=== PATIENT | female | born 1980 | race Caucasian/White ===

== ENCOUNTER → 2016-06-11 | Outpatient (CLI) | payer BC | LOC: MW.CHPM 11:12 | PROVIDERS: ATTEND Anesthesiology | DX: Z79.891 Long term (current) use of opiate analgesic (principal) | CPT/HCPCS: 80305 ==

== ENCOUNTER 2016-07-05 19:28 | Emergency (ER) | payer BC ==
[2016-07-05] MEDS ORDERED: Ketorolac 30 MG/ML SDV IVPUSH ONE (19:37)
[2016-07-05] MEDS ORDERED: Morphine 2 MG/ML Syringe IVPUSH ONE (19:37)
[2016-07-05] MEDS ORDERED: Sodium Chloride 0.9% 1,000 ML IV ONE (19:37)
--- NOTE | 2016-07-05 19:45 | EDM.PDOC ---
ED HPI GI/ABDOMINAL - General Chief Complaint: Abdominal Pain Stated Complaint: PT HAS STOMACH PAINS Time Seen by Provider: 07/05/16 19:42 Source of Information: Reports: Patient - History of Present Illness INITIAL COMMENTS - FREE TEXT/NARRATIVE: History of present illness: [35-year-old female comes in complaining of acute abdominal pain in her lower pelvis. Patient indicates the pain radiates up from her pelvis prepping around her back into her flank.] Review of systems: As per history of present illness and below otherwise all systems reviewed and negative. Past medical history: As per history of present illness and as reviewed below otherwise noncontributory. Surgical history: As per history of present illness and as reviewed below otherwise noncontributory. Social history: No reported history of drug or alcohol abuse. Family history: As per history of present illness and as reviewed below otherwise noncontributory. Physical exam: HEENT: Atraumatic, normocephalic, pupils reactive, negative for conjunctival pallor or scleral icterus, mucous membranes moist, throat clear, neck supple, nontender, trachea midline. Lungs: Clear to auscultation, breath sounds equal bilaterally, chest nontender. Heart: S1S2, regular, negative for clicks, rubs, or JVD. Abdomen: Soft, nondistended, diffuse nonspecific tenderness Negative for masses or hepatosplenomegaly. Negative for costovertebral tenderness. Pelvis: Stable nontender. Genitourinary: Deferred. Rectal: Deferred. Extremities: Atraumatic, negative for cords or calf pain. Neurovascular unremarkable. Neuro: Awake, alert, oriented. Cranial nerves II through XII unremarkable. Cerebellum unremarkable. Motor and sensory unremarkable throughout. Exam nonfocal. Abdominal assessment as noted above patient with significant amount of pain relief after medicated. Diagnostics: [CBC, CMP, CT of pelvis abdomen with out contrast] Therapeutics: [IV fluid, Toradol Zofran, fentanyl] Impression: [Normal nonobstructing kidney stone, UTI] Plan: [Antibiotics, hydration, follow] Definitive disposition and diagnosis as appropriate pending reevaluation and review of above. - Related Data Allergies/ADRs: Allergies Allergy/AdvReac Type Severity Reaction Status Date / Time morphine Allergy Nausea and Verified 07/12/15 05:03 Vomiting NSAIDS (Non-Steroidal Allergy gastric Verified 07/12/15 05:03 Anti-Inflamma bypass Home Meds: Home Meds Cholecalciferol (Vitamin D3) [Vitamin D3] 1,000 unit PO ASDIRECTED 03/03/15 [ History] Multivitamin [Multi-Vitamin Daily] 1 each PO ASDIRECTED 03/03/15 [History] Omeprazole [priLOSEC OTC] 20 mg PO ASDIRECTED 03/03/15 [History] Propranolol [Inderal LA] 120 mg PO DAILY 04/03/15 [History] Hydrocodone/Acetaminophen [[place] 7.5-325 Tablet] 1 each PO BID 07/05/16 [History ] Nitrofurantoin Monohyd/M-Cryst [Macrobid 100 mg Capsule] 100 mg PO BID #20 capsule 07/05/16 [Rx] Past Medical History Genitourinary History: Reports: None Musculoskeletal History: Reports: Back pain, chronic Neurological History: Reports: Migraines Endocrine/Metabolic History: Reports: Other (see below) Other Endocrine/Metabolic History: "low tsh" - Past Surgical History GI Surgical History: Reports: Bariatric procedure, Other (see below) Other GI Surgeries/Procedures: gastric bypass Female Surgical History: Reports: Tubal ligation Social & Family History - Family History Family Medical History: Noncontributory - Tobacco Use Smoking Status *Q: Never Smoker Second Hand Smoke Exposure: No - Recreational Drug Use Recreational Drug Use: No ED ROS GENERAL - Review of Systems Review Of Systems: See Below (The history of present illness) ED EXAM, GI/ABD - Physical Exam Exam: See Below (See history of present illness) Course - Vital Signs Last Recorded V/S: Last Vital Signs Temp 36.7 C 07/05/16 19:32 Pulse 140 H 07/05/16 19:32 Resp 20 07/05/16 19:32 BP 144/94 H 07/05/16 19:32 Pulse Ox 98 07/05/16 19:32 - Orders/Labs/Meds Orders: Active Orders 24 hr Category Date Time Status Abdomen Pelvis wo Cont [CT] Stat Exams 07/05/16 19:37 Ordered Labs: Laboratory Tests 07/05/16 07/05/16 07/05/16 Range/Units 19:20 19:20 20:18 WBC 4.51 (4.0-11.0) K/uL RBC 3.99 L (4.30-5.90) M/uL Hgb 9.0 L (12.0-16.0) g/dL Hct 30.1 L (36.0-46.0) % MCV 75.4 L (80.0-98.0) fL MCH 22.6 L (27.0-32.0) pg MCHC 29.9 L (31.0-37.0) g/dL RDW Std Deviation 49.5 (28.0-62.0) fl RDW Coeff of [place] 18 H (11.0-15.0) % Plt Count 387 (150-400) K/uL MPV 9.50 (7.40-12.00) fL Neut % (Auto) 44.4 L (48.0-80.0) % Lymph % (Auto) 51.2 H (16.0-40.0) % [place] % (Auto) 3.3 (0.0-15.0) % Eos % (Auto) 0.7 (0.0-7.0) % Baso % (Auto) 0.4 (0.0-1.5) % Neut # (Auto) 2.0 (1.4-5.7) K/uL Lymph # (Auto) 2.3 (0.6-2.4) K/uL [place] # (Auto) 0.2 (0.0-0.8) K/uL Eos # (Auto) 0.0 (0.0-0.7) K/uL Baso # (Auto) 0.0 (0.0-0.1) K/uL Nucleated RBC % 0.0 /100WBC Nucleated RBCs # 0 K/uL Sodium 141 (136-146) mmol/L Potassium 3.5 (3.5-5.1) mmol/L Chloride 108 (98-110) mmol/L Carbon Dioxide 20 L (21-31) mmol/L BUN 12 (6.0-23.0) mg/dL Creatinine 0.8 (0.6-1.5) mg/dL Est Cr Clr Drug Dosing 99.95 mL/min Estimated GFR (MDRD) > 60.0 ml/min Glucose 97 (60-110) mg/dL Calcium 9.5 (8.8-10.8) mg/dL Total Bilirubin 0.5 (0.1-1.5) mg/dL AST 18 (5-40) IU/L ALT 20 (8-54) IU/L Alkaline Phosphatase 54 (40-150) Total Protein 6.6 (6.0-8.0) g/dL Albumin 4.0 (3.5-5.0) g/dL Globulin 2.6 (2.0-3.5) g/dL Albumin/Globulin Ratio 1.5 (1.3-2.8) Amylase 40 (10-90) U/L Lipase 10 (7-80) U/L Urine Color YELLOW Urine Appearance SLT CLOUDY Urine pH 7.0 (5.0-8.0) Ur Specific [place] 1.010 (1.001-1.035) Urine Protein NEGATIVE (NEGATIVE) mg/dL Urine Glucose (UA) NEGATIVE (NEGATIVE) mg/dL Urine Ketones NEGATIVE (NEGATIVE) mg/dL Urine Occult Blood NEGATIVE (NEGATIVE) Urine Nitrite NEGATIVE (NEGATIVE) Urine Bilirubin NEGATIVE (NEGATIVE) Urine Urobilinogen 0.2 (<2.0) EU/dL Ur Leukocyte Esterase SMALL (NEGATIVE) Urine RBC 0-1 (0-2/HPF) Urine WBC 4-7 (0-5/HPF) Ur Epithelial Cells MANY (NONE-FEW) Urine Bacteria 1+ H (NEGATIVE) Meds: Medications Discontinued Medications Generic Name Dose Route Start Last Admin Trade Name Freq PRN Reason Stop Dose Admin Fentanyl 50 mcg 07/05/16 20:16 07/05/16 20:22 Sublimaze IVPUSH 07/05/16 20:17 50 mcg ONETIME ONE Administration Sodium Chloride 1,000 mls @ 999 mls/hr 07/05/16 19:37 07/05/16 19:57 Normal Saline IV 07/05/16 20:37 999 mls/hr STAT ONE Administration Ketorolac Tromethamine 30 mg 07/05/16 19:37 07/05/16 19:56 Toradol IVPUSH 07/05/16 19:38 30 mg ONETIME ONE Administration Ondansetron HCl 4 mg 07/05/16 20:11 07/05/16 20:15 Zofran IVPUSH 07/05/16 20:12 4 mg ONETIME ONE Administration Prochlorperazine Edisylate 5 mg 07/05/16 20:16 07/05/16 20:24 Compazine IVPUSH 07/05/16 20:17 5 mg ONETIME ONE Administration Departure - Departure Time of Disposition: 20:48 Disposition: Home, Self-Care 01 Condition: good Clinical Impression: Kidney stone Prescriptions: Nitrofurantoin Monohyd/M-Cryst [Macrobid 100 mg Capsule] 100 mg PO BID #20 capsule Forms: ED Department Discharge Additional Instructions: The following information is given to patients seen in the emergency department who are being discharged to home. This information is to outline your options for follow-up care. We provide all patients seen in our emergency department with a follow-up referral. The need for follow-up, as well as the timing and circumstances, are variable depending upon the specifics of your emergency department visit. If you don't have a primary care physician on staff, we will provide you with a referral. We always advise you to contact your personal physician following an emergency department visit to inform them of the circumstance of the visit and for follow-up with them and/or the need for any referrals to a consulting specialist. The emergency department will also refer you to a specialist when appropriate. This referral assures that you have the opportunity for follow-up care with a specialist. All of these measure are taken in an effort to provide you with optimal care, which includes your follow-up. Under all circumstances we always encourage you to contact your private physician who remains a resource for coordinating your care. When calling for follow-up care, please make the office aware that this follow-up is from your recent emergency room visit. If for any reason you are refused follow-up, please contact the [facility] Emergency Department at and asked to speak to the emergency department charge nurse. Take medication as needed from a you have a home as well as the new prescription for antibiotics for UTI Followup the primary care 1-2 days Return to ED as needed as discussed - My Orders Last 24 Hours: My Active Orders 07/05/16 19:37 Abdomen Pelvis wo Cont [CT] Stat - Assessment/Plan Last 24 Hours: My Active Orders 07/05/16 19:37 Abdomen Pelvis wo Cont [CT] Stat
[2016-07-05] MEDS ORDERED: Ondansetron 4 MG/2 ML SDV IVPUSH ONE (20:11)
[2016-07-05] MEDS ORDERED: Prochlorperazine 10 MG/2 ML SDV IVPUSH ONE (20:16)
[2016-07-05] MEDS ORDERED: fentaNYL 100 MCG/2 ML SDV IVPUSH ONE (20:16)
[2016-07-05 20:25] LABS: CHLORIDE,CL 108 mmol/L (98-110); SODIUM,NA 141 mmol/L (136-146)
[2016-07-05 20:59] VITALS: BP 124/80
--- NOTE | 2016-07-06 16:03 | CT ---
EXAM DATE: 07/05/16 PATIENT'S AGE: 35 Patient: FAMILIA THOMPSON Facility: [place], [place] Site . Site : 1980 Study: CT Abdomen/Pelvis WO CONT [id number] 8:12:02 PM Ordering Physician: Doctor Pop Final Report: INDICATION: Severe mid abdominal pain with radiation to the back, onset last night. TECHNIQUE: CT abdomen and pelvis without contrast. COMPARISON: CT study dated 04/03/2015 FINDINGS: Ivory Carver CT image: Nonobstructive bowel gas pattern. Lower chest: Imaged lung bases are clear. Liver: Noncontrast evaluation of liver unremarkable. Spleen: Normal. Pancreas: Normal. Gallbladder and bile ducts: Gallbladder and bile ducts normal. Adrenal glands: Normal. Kidneys: Punctate nonobstructing left renal calculus, identified on axial image 58 series 201. Tiny left renal calculus unchanged from prior CT study. Ureters are normal. No right or left ureteral calculi. GI tract: Postsurgical changes from gastric bypass. No underlying bowel obstruction or evidence of internal hernia. Normal appendix. Vascular structures: Limited evaluation without IV contrast. Abdominal aorta normal in caliber. Lymph nodes: No enlarged lymph nodes in the abdomen or pelvis. Miscellaneous: Unremarkable. No free air or significant free fluid. Pelvic Organs: Unremarkable. Bones: Unremarkable for age. IMPRESSION: 1. Tiny nonobstructing left renal calculus, similar to 04/03/2015 CT findings. No hydronephrosis or evidence of associated ureteral calculi. 2. Normal appendix. Overall, unchanged CT findings from 04/03/2015. Dictated by Florentino Oseguera MD @ 07/05/2016 8:28:10 PM Dictated by: Florentino Oseguera MD @ 07/05/2016 20:28:21 (Electronic Signature) Report Signed by Proxy. [facility]ITALAdel[facility]
== END 2016-07-05 20:57 | disposition home or self-care (01) ==
LOC: MW.ED 19:28
DX: N39.0 Urinary tract infection, site not specified (principal); N20.0 Calculus of kidney; Z88.5 Allergy status to narcotic agent; Z88.8 Allergy status to other drugs, medicaments and biological substances; Z98.84 Bariatric surgery status
CPT/HCPCS: 74176; 80053; 81001; 82150; 83690; 85025; 96361; 96374; 96375; 99284; J0780; J1885; J2405; J3010; J7040; 99283

== ENCOUNTER 2016-07-06 19:57 | Emergency (ER) | payer BC ==
[2016-07-06] MEDS ORDERED: Ondansetron 4 MG/2 ML SDV IVPUSH ONE ×2 (20:17→23:53)
[2016-07-06] MEDS ORDERED: LORazepam 2 MG/ML MDV IVPUSH ONE (20:51)
[2016-07-06] MEDS ORDERED: Sodium Chloride 0.9% 1,000 ML IV ONE (20:56)
[2016-07-06 21:00] LABS: CHLORIDE,CL 104 mmol/L (98-110); SODIUM,NA 138 mmol/L (136-146)
[2016-07-06] MEDS ORDERED: Sodium Chloride 0.9% 10 ML Syringe FLUSH PRN (21:24)
[2016-07-06] MEDS ORDERED: Sodium Chloride 0.9% 2.5 ML Syringe FLUSH PRN (21:24)
--- NOTE | 2016-07-06 21:27 | EDM.PDOC ---
ED HPI GI/ABDOMINAL - General Chief Complaint: Gastrointestinal Problem Stated Complaint: SEVERE ABDOMINAL PAIN Time Seen by Provider: 07/06/16 20:13 Source of Information: Reports: Patient History Limitations: Reports: No limitations - History of Present Illness INITIAL COMMENTS - FREE TEXT/NARRATIVE: HISTORY AND PHYSICAL: History of present illness: [35-year-old female with a history of gastric bypass in January of 2015 at [facility] by Dr. Joy, now presents emergency department complaining of mid abdominal pain with nausea and vomiting. Patient was seen yesterday and evaluated for Ozzy pain however she had a noncontrast CT of the abdomen and was unremarkable she states her pain is worsened today and she had some feculent vomiting by her description. No fevers chills sweats or shaking chills. Patient feels like her pain has been worsening today. It is constant and not worse with movement. Normal bladder habits per] Review of systems: As per history of present illness and below otherwise all systems reviewed and negative. Past medical history: As per history of present illness and as reviewed below otherwise noncontributory. Surgical history: As per history of present illness and as reviewed below otherwise noncontributory. Social history: No reported history of drug or alcohol abuse. Family history: As per history of present illness and as reviewed below otherwise noncontributory. Physical exam: 35-year-old female appearing mildly uncomfortable complaining of nausea nondistended abdomen with mild midabdominal tenderness no guarding or rebound. Positive bowel sounds HEENT: Atraumatic, normocephalic, pupils reactive, negative for conjunctival pallor or scleral icterus, mucous membranes moist, throat clear, neck supple, nontender, trachea midline. Lungs: Clear to auscultation, breath sounds equal bilaterally, chest nontender. Heart: S1S2, regular, negative for clicks, rubs, or JVD. Abdomen: Soft, nondistended, nontender. Negative for masses or hepatosplenomegaly. Negative for costovertebral tenderness. Pelvis: Stable nontender. Genitourinary: Deferred. Rectal: Deferred. Extremities: Atraumatic, negative for cords or calf pain. Neurovascular unremarkable. Neuro: Awake, alert, oriented. Cranial nerves grossly unremarkable. Cerebellum unremarkable. Motor and sensory unremarkable throughout. Exam nonfocal. Diagnostics: [Patient with a platelet blood cell count, and CT of the abdomen and pelvis shows small bowel obstruction with transition point.] Therapeutics: [IV fluids and analgesia administered as well as anti ematic Impression: [Small bowel obstruction Abdominal pain Nausea and vomiting] Plan: [Patient complaining of abdominal pain yesterday and today worsening. Elevated white blood cell count. CT with small bowel structure in. Will discuss with surgery Dr. Soto Aguilera and anticipate inpatient admission for surgical consultation and treatment as needed] patient hemodynamically stable Definitive disposition and diagnosis as appropriate pending reevaluation and review of above. - Related Data Allergies/ADRs: Allergies Allergy/AdvReac Type Severity Reaction Status Date / Time morphine Allergy Nausea and Verified 07/06/16 20:25 Vomiting NSAIDS (Non-Steroidal Allergy gastric Verified 07/06/16 20:25 Anti-Inflamma bypass Home Meds: Home Meds Cholecalciferol (Vitamin D3) [Vitamin D3] 1,000 unit PO DAILY 03/03/15 [History] Multivitamin [Multi-Vitamin Daily] 1 each PO DAILY 03/03/15 [History] Omeprazole [priLOSEC OTC] 20 mg PO DAILY 03/03/15 [History] Propranolol [Inderal LA] 60 mg PO DAILY 04/03/15 [History] Hydrocodone/Acetaminophen [[place] 7.5-325 Tablet] 1 each PO BID 07/05/16 [History ] Nitrofurantoin Monohyd/M-Cryst [Macrobid 100 mg Capsule] 100 mg PO BID #20 capsule 07/05/16 [Rx] Past Medical History - Past Health History Medical/Surgical History: Denies Medical/Surgical History HEENT History: Reports: None Cardiovascular History: Reports: None Respiratory History: Reports: None Gastrointestinal History: Reports: None Genitourinary History: Reports: None 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: Musculoskeletal History: Reports: Back pain, chronic Neurological History: Reports: Migraines Psychiatric History: Reports: None Endocrine/Metabolic History: Reports: Other (see below) Other Endocrine/Metabolic History: "low tsh" Hematologic History: Reports: None Oncologic (Cancer) History: Reports: None Dermatologic History: Reports: None - Infectious Disease History Infectious Disease History: Reports: None - Past Surgical History GI Surgical History: Reports: Bariatric procedure, Other (see below) Other GI Surgeries/Procedures: gastric bypass Female Surgical History: Reports: Tubal ligation Social & Family History - Family History Family Medical History: Noncontributory Cardiac: Reports: Hypertension, Other (see below) Other Cardiac Family History: Father Endocrine/Metabolic: Reports: Diabetes, type II Other Endocrine/Metabolic Family History: Father Oncologic: Reports: Other (see below) Other Oncologic Family History: CA melanoma - Tobacco Use Smoking Status *Q: Never Smoker Second Hand Smoke Exposure: No - Caffeine Use Caffeine Use: Reports: Tea - Recreational Drug Use Recreational Drug Use: No ED ROS GENERAL - Review of Systems Review Of Systems: See Below (History of present illness) ED EXAM, GI/ABD - Physical Exam Exam: See Below (History of present illness) Course - Vital Signs Last Recorded V/S: Last Vital Signs Temp 36.8 C 07/06/16 21:43 Pulse 75 07/06/16 21:43 Resp 22 H 07/06/16 20:15 BP 142/94 H 07/06/16 21:43 Pulse Ox 95 07/06/16 20:15 - Orders/Labs/Meds Orders: Active Orders 24 hr Category Date Time Status Abdomen Pelvis w wo Cont [CT] Stat Exams 07/06/16 21:24 Taken Sodium Chloride 0.9% [Saline Flush] Med 07/06/16 21:24 Active 10 ml FLUSH ASDIRECTED PRN Sodium Chloride 0.9% [Saline Flush] Med 07/06/16 21:24 Active 2.5 ml FLUSH ASDIRECTED PRN Peripheral IV Insertion Adult [OM.PC] Stat Oth 07/06/16 21:24 Ordered Medication Orders Sodium Chloride (Saline Flush) 10 ml FLUSH ASDIRECTED PRN PRN Reason: Keep Vein Open Sodium Chloride (Saline Flush) 2.5 ml FLUSH ASDIRECTED PRN PRN Reason: Keep Vein Open Labs: Laboratory Tests 07/06/16 07/06/16 07/06/16 Range/Units 20:15 20:15 20:15 WBC 5.25 (4.0-11.0) K/uL RBC 4.77 (4.30-5.90) M/uL Hgb 10.6 L (12.0-16.0) g/dL Hct 35.2 L (36.0-46.0) % MCV 73.8 L (80.0-98.0) fL MCH 22.2 L (27.0-32.0) pg MCHC 30.1 L (31.0-37.0) g/dL RDW Std Deviation 47.4 (28.0-62.0) fl RDW Coeff of [place] 18 H (11.0-15.0) % Plt Count 437 H (150-400) K/uL MPV 9.50 (7.40-12.00) fL Neut % (Auto) 75.4 (48.0-80.0) % Lymph % (Auto) 19.8 (16.0-40.0) % [place] % (Auto) 4.4 (0.0-15.0) % Eos % (Auto) 0.2 (0.0-7.0) % Baso % (Auto) 0.2 (0.0-1.5) % Neut # (Auto) 4.0 (1.4-5.7) K/uL Lymph # (Auto) 1.0 (0.6-2.4) K/uL [place] # (Auto) 0.2 (0.0-0.8) K/uL Eos # (Auto) 0.0 (0.0-0.7) K/uL Baso # (Auto) 0.0 (0.0-0.1) K/uL Nucleated RBC % 0.0 /100WBC Nucleated RBCs # 0 K/uL Sodium 138 (136-146) mmol/L Potassium 3.8 (3.5-5.1) mmol/L Chloride 104 (98-110) mmol/L Carbon Dioxide 19 L (21-31) mmol/L BUN 10 (6.0-23.0) mg/dL Creatinine 0.8 (0.6-1.5) mg/dL Est Cr Clr Drug Dosing 92.76 mL/min Estimated GFR (MDRD) > 60.0 ml/min Glucose 119 H (60-110) mg/dL Calcium 10.2 (8.8-10.8) mg/dL Total Bilirubin 0.7 (0.1-1.5) mg/dL AST 19 (5-40) IU/L ALT 18 (8-54) IU/L Alkaline Phosphatase 63 (40-150) Total Protein 7.5 (6.0-8.0) g/dL Albumin 4.4 (3.5-5.0) g/dL Globulin 3.1 (2.0-3.5) g/dL Albumin/Globulin Ratio 1.4 (1.3-2.8) Lipase < 8 (7-80) U/L Urine Color Urine Appearance Urine pH (5.0-8.0) Ur Specific [place] (1.001-1.035) Urine Protein (NEGATIVE) mg/dL Urine Glucose (UA) (NEGATIVE) mg/dL Urine Ketones (NEGATIVE) mg/dL Urine Occult Blood (NEGATIVE) Urine Nitrite (NEGATIVE) Urine Bilirubin (NEGATIVE) Urine Urobilinogen (<2.0) EU/dL Ur Leukocyte Esterase (NEGATIVE) Urine RBC (0-2/HPF) Urine WBC (0-5/HPF) Ur Epithelial Cells (NONE-FEW) Amorphous Sediment (NEGATIVE) Urine Bacteria (NEGATIVE) Urine Mucus (NONE-MOD) Urine HCG, Qual (NEGATIVE) 07/06/16 07/06/16 Range/Units 21:00 21:00 WBC (4.0-11.0) K/uL RBC (4.30-5.90) M/uL Hgb (12.0-16.0) g/dL Hct (36.0-46.0) % MCV (80.0-98.0) fL MCH (27.0-32.0) pg MCHC (31.0-37.0) g/dL RDW Std Deviation (28.0-62.0) fl RDW Coeff of [place] (11.0-15.0) % Plt Count (150-400) K/uL MPV (7.40-12.00) fL Neut % (Auto) (48.0-80.0) % Lymph % (Auto) (16.0-40.0) % [place] % (Auto) (0.0-15.0) % Eos % (Auto) (0.0-7.0) % Baso % (Auto) (0.0-1.5) % Neut # (Auto) (1.4-5.7) K/uL Lymph # (Auto) (0.6-2.4) K/uL [place] # (Auto) (0.0-0.8) K/uL Eos # (Auto) (0.0-0.7) K/uL Baso # (Auto) (0.0-0.1) K/uL Nucleated RBC % /100WBC Nucleated RBCs # K/uL Sodium (136-146) mmol/L Potassium (3.5-5.1) mmol/L Chloride (98-110) mmol/L Carbon Dioxide (21-31) mmol/L BUN (6.0-23.0) mg/dL Creatinine (0.6-1.5) mg/dL Est Cr Clr Drug Dosing mL/min Estimated GFR (MDRD) ml/min Glucose (60-110) mg/dL Calcium (8.8-10.8) mg/dL Total Bilirubin (0.1-1.5) mg/dL AST (5-40) IU/L ALT (8-54) IU/L Alkaline Phosphatase (40-150) Total Protein (6.0-8.0) g/dL Albumin (3.5-5.0) g/dL Globulin (2.0-3.5) g/dL Albumin/Globulin Ratio (1.3-2.8) Lipase (7-80) U/L Urine Color YELLOW Urine Appearance SLT CLOUDY Urine pH 8.0 (5.0-8.0) Ur Specific [place] 1.020 (1.001-1.035) Urine Protein TRACE (NEGATIVE) mg/dL Urine Glucose (UA) NEGATIVE (NEGATIVE) mg/dL Urine Ketones >=80 (NEGATIVE) mg/dL Urine Occult Blood NEGATIVE (NEGATIVE) Urine Nitrite NEGATIVE (NEGATIVE) Urine Bilirubin NEGATIVE (NEGATIVE) Urine Urobilinogen 0.2 (<2.0) EU/dL Ur Leukocyte Esterase NEGATIVE (NEGATIVE) Urine RBC 0-1 (0-2/HPF) Urine WBC 1-3 (0-5/HPF) Ur Epithelial Cells MODERATE (NONE-FEW) Amorphous Sediment FEW (NEGATIVE) Urine Bacteria FEW (NEGATIVE) Urine Mucus LIGHT (NONE-MOD) Urine HCG, Qual NEGATIVE (NEGATIVE) Meds: Medications Generic Name Dose Route Start Last Admin Trade Name Freq PRN Reason Stop Dose Admin Sodium Chloride 10 ml 07/06/16 21:24 Saline Flush FLUSH ASDIRECTED PRN Keep Vein Open Sodium Chloride 2.5 ml 07/06/16 21:24 Saline Flush FLUSH ASDIRECTED PRN Keep Vein Open Discontinued Medications Generic Name Dose Route Start Last Admin Trade Name Freq PRN Reason Stop Dose Admin Sodium Chloride 1,000 mls @ 999 mls/hr 07/06/16 20:56 07/06/16 21:01 Normal Saline IV 07/06/16 21:56 999 mls/hr .Bolus ONE Administration Iopamidol 80 ml 07/06/16 22:14 07/06/16 22:15 Isovue Multipack-370 (76%) IVPUSH 07/06/16 22:15 80 ml ONETIME STA Administration Lorazepam 1 mg 07/06/16 20:51 07/06/16 21:01 Ativan IVPUSH 07/06/16 20:52 1 mg ONETIME ONE Administration Ondansetron HCl 4 mg 07/06/16 20:17 07/06/16 20:21 Zofran IVPUSH 07/06/16 20:18 4 mg ONETIME ONE Administration Departure - Departure Time of Disposition: 22:57 Disposition: Admitted As Inpatient 67 Condition: fair Clinical Impression: Small bowel obstruction, Abdominal pain, Nausea and vomiting - My Orders Last 24 Hours: My Active Orders 07/06/16 21:24 Abdomen Pelvis w wo Cont [CT] Stat Sodium Chloride 0.9% [Saline Flush] 10 ml FLUSH ASDIRECTED PRN Sodium Chloride 0.9% [Saline Flush] 2.5 ml FLUSH ASDIRECTED PRN Peripheral IV Insertion Adult [OM.PC] Stat - Assessment/Plan Last 24 Hours: My Active Orders 07/06/16 21:24 Abdomen Pelvis w wo Cont [CT] Stat Sodium Chloride 0.9% [Saline Flush] 10 ml FLUSH ASDIRECTED PRN Sodium Chloride 0.9% [Saline Flush] 2.5 ml FLUSH ASDIRECTED PRN Peripheral IV Insertion Adult [OM.PC] Stat
[2016-07-06] MEDS ORDERED: Iopamidol 755 MG/ML 500 ML Multipack Bottle IVPUSH STA (22:14)
[2016-07-06 23:38] VITALS: BP 138/79
[2016-07-06] MEDS ORDERED: HYDROmorphone 1 MG/ML Syringe IVPUSH ONE (23:53)
[2016-07-07] MEDS ORDERED: Sodium Chloride 0.9% 1,000 ML IV ONE ×2 (00:48)
--- NOTE | 2016-07-09 06:13 | CONS ---
DATE OF CONSULTATION: 07/07/2016 DATE OF : 1980 PRIMARY CARE PHYSICIAN: None PCP CONSULTING PHYSICIAN: Dr. Jerome Nathan from emergency room. CONCERNING QUESTION: Possible bowel obstruction. HISTORY OF PRESENT ILLNESS: The patient is a 35-year-old lady who had a gastric bypass, laparoscopic, done in [facility] in 2014. She was doing fine postop until 2 days ago, she started feeling nauseated, could not keep things down. She went to emergency room and was diagnosed with a kidney stone and she was sent home, however, nausea and abdominal pain continued to progress. The patient returned to the emergency room to get a CAT scan. CAT scan revealed possible high-grade small bowel obstruction with possible transition point. Surgery was then consulted and the patient remarked that she never had this before and does not feel like kidney stone and she described the pain as 4 to 6/10 and whenever the car would go through a bump or in front of stop sign, it hurt much worse, and patient vomited during the interview and patient also complained that she is not able to keep anything down. She passed gas 24 hours prior to coming to the emergency room and well formed stool was 2 days ago. PAST MEDICAL HISTORY: Significant for no diabetes, MO, CVA, hypertension. PAST SURGICAL HISTORY: Laparoscopic Brian-en-Y gastric bypass and bilateral tubal ligation. ALLERGIES: Please refer to nursing for details. MEDICATION: Please refer to nursing for details. REVIEW OF SYSTEMS: Same as history of present illness. PHYSICAL EXAMINATION: GENERAL: A very ill looking lady holding her vomiting bag. HEENT: Normocephalic, atraumatic. Sclerae anicteric. LUNGS: Clear to auscultation. HEART: Regular rate and rhythm. ABDOMEN: Soft, nondistended. Well-healed laparoscopic surgical scar. Diffuse tenderness in all 4 quadrants. No rebound, no hernia appreciated. No lump on either groin. LABORATORY DATA: White count 5.6. CAT scan results alluded to the beginning possible transition point high-grade obstruction and with dilated bowel compared to 24 hours ago. IMPRESSION: Two years status post laparoscopic gastric bypass, now presents to emergency room with nausea, vomiting, and CAT scan suggests possible bowel obstruction over transition point. Long discussion with patient regarding treatment and possible surgery and the patient requests transfer back to try a surgeon at [place]. Risks and benefits discussed with the patient including management and also phone call to [place] on-call surgeon, Dr. Rivas who agreed to accept the patient. Dr. Rivas also requests send with CAT scan imaging and report and lab work. As always, thank you for the kind referral. ANY / JORGE /[id number] Cc: Dr. Jerome Nathan, ER
--- NOTE | 2016-07-12 17:21 | CT ---
Patient: FAMILIA THOMPSON Facility: [facility] Site . Site : 1980 Study: CT-Abdomen/Pelvis W/ and W/O Cont [id number] 10:13:40 PM Ordering Physician: Jac Cano Final Report: INDICATION: Severe right-sided abdominal pain TECHNIQUE: CT abdomen and pelvis without and with IV contrast. 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 Lower chest: Imaged lung bases are clear. No free air. Liver: Tiny hypodensity adjacent to the falciform ligament, likely small hepatic cysts. Remaining liver parenchyma is normal. Spleen: Normal. Pancreas: Normal. Gallbladder and bile ducts: Gallbladder and bile ducts normal. Adrenal glands: Normal. Kidneys: No hydronephrosis. Tiny left lower pole renal calculi again noted. GI tract: Postsurgical changes. From gastric bypass. There is increased distention of small bowel loops from prior study. Small bowel mucosal enhancement preserved with normal caliber large bowel. Normal appendix identified in the right lower abdominal quadrant. Possible transition point, involving small bowel in the central mesentery, identified on coronal reformat series 303, image 30. No twisting of the mesenteric vessels to indicate internal hernia. Possible transition point near small bowel anastomosis in the central abdomen, axial series 301, image 77. Vascular structures: Item portal vein and branches, splenic vein, and SMV are patent. Normal orientation of SMA and SMV. Abdominal aorta normal in caliber. Origins of the celiac artery and SMA are patent. Lymph nodes: No enlarged pelvic, retroperitoneal, or abdominal lymph nodes. Miscellaneous: Anterior abdominal wall intact. Small amount of free pelvic fluid , similar to prior study 1 day prior and within physiologic limits. Pelvic Organs: Uterus and adnexal structures are unremarkable. Bones: No suspicious osseous lesion. IMPRESSION: 1. Significant interval change from prior CT 1 day prior on 07/05/2016. Interval development of small bowel obstruction with possible transition point involving small bowel in the right central abdomen just proximal to small bowel anastomosis, series 301 image 77. Likely postoperative adhesion as the etiology for developing small bowel obstruction with no adjacent soft tissue mass, pneumatosis, or interloop ascites. No internal hernia or free air. 2. Normal appendix. Dictated by Florentino Oseguera MD @ 07/06/2016 10:31:20 PM Dictated by: Florentino Oseguera MD @ 07/06/2016 22:31:34 Signed by: Florentino Oseguera MD @07/06/2016 10:31:34 PM (Electronic Signature) Report Signed by Proxy. MTDD
== END 2016-07-07 01:37 ==
LOC: MW.ED 19:57 → UNDOADMIN 22:58 → MW.MS 22:58 → UNDODISIN 07-07 03:30
DX: K56.60 Unspecified intestinal obstruction (principal); R10.9 Unspecified abdominal pain; Z98.84 Bariatric surgery status; Z79.899 Other long term (current) drug therapy; Z88.8 Allergy status to other drugs, medicaments and biological substances
CPT/HCPCS: 74178; 80053; 81001; 81025; 83690; 85025; 96361; 96374; 99285; J1170; J2060; J2405; J7040; Q9967

== ENCOUNTER 2016-09-13 11:04 | Day surgery (SDC) | payer BC ==
[2016-09-13] MEDS ORDERED: Lidocaine 2% 5 ML SDV ONE (11:31)
[2016-09-13] MEDS ORDERED: Ropivacaine 0.5% 5 MG/ML 30 ML SDV ONE (11:31)
[2016-09-13] MEDS ORDERED: Betamethasone Acetate/Betamethasone Sod Phosphate 30 MG/5 ML MDV ONE (11:31)
[2016-09-13] MEDS ORDERED: Iopamidol 408 MG/ML 50 ML SDV ONE (11:31)
--- NOTE | 2016-09-13 15:11 | OR ---
SURGEON: Cordelia Ibarra D.O. DATE OF PROCEDURE: 09/13/2016 OR STAFF PRESENT: 1. Pili Peres RN. 2. Joyce Gong RN. 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 WOUND CLASSIFICATION: I. PREOPERATIVE DIAGNOSES: 1. Lumbar herniated disk. 2. Lumbar radiculopathy. POSTOPERATIVE DIAGNOSES: 1. Lumbar herniated disk. 2. Lumbar radiculopathy. PROCEDURE PERFORMED: 1. Lumbar epidural steroid injection intralaminar at L4-L5. 2. Fluoroscopic guidance for needle placement. 3. Local with oral Valium for sedation. SCREENING QUESTIONS: The patient answered "no" to all of the following questions: 1. Are you allergic to latex? 2. Do you have a bleeding disorder? 3. Do you have any current local or systemic infections? 4. Are you taking any anti-inflammatories or blood thinners? 5. Do you have any joint replacements, heart valve replacements, or a pacemaker? DESCRIPTION OF PROCEDURE: The patient had the procedure thoroughly explained including all possible risks, benefits and alternatives. Consent was signed in my clinic indicating understanding and willingness to proceed. The patient presented to [facility] [place] and was escorted to the dressing room to disrobe and change into a hospital gown. Preoperative vital signs were taken and stable. The patient reported that Valium was taken prior to the procedure. The patient was brought back to the procedure room and placed in the prone position on the procedure room table. A pillow was placed under the hips in order to flatten the lumbar lordosis. The back was prepped with ChloraPrep and sterilely draped. All personnel in the operating room were dressed in appropriate attire including surgical scrubs, head and shoe covers. This was to ensure sterility while in the treatment room. During the time fluoroscopy was in use, all personnel in the operating room wore lead haile with thyroid collars. Sterile technique was used throughout the procedure. The patient was awake and conversant throughout the procedure. There was no evidence of infection at the site of needle insertion. Skeletal landmarks were identified under fluoroscopy for the lumbar epidural. Skin was anesthetized with 2% lidocaine with a sterile 27-gauge 1.5 inch needle. Then a 20-gauge Tuohy epidural needle was placed in the epidural space with loss of resistance technique under fluoroscopic guidance. No heme, cerebrospinal fluid, or paresthesias were noted. Isovue-200 contrast dye was injected in 0.2 cubic centimeter increments and seen to outline the epidural space in both AP and lateral views. There was no intravascular flow pattern observed under live fluoroscopy. Then 12 milligrams of Celestone was slowly injected after negative aspiration. The patient tolerated the procedure well. Vital signs were stable during and after the procedure. The staff escorted the patient to the recovery area and the patient was released in stable condition after a brief stay in the recovery room monitored by the nurse. The patient was given both oral and written discharge and follow up instructions with recommendation to follow up given for 2-3 weeks. The patient voiced understanding including understanding of those signs and symptoms that would require emergency care. The patient knows how to contact the office if there are any additional problems or questions in the meantime. PREOPERATIVE PAIN: 5+/10. POSTOPERATIVE PAIN: 1/10. PLAN: Followup in the Pain Clinic in 3 weeks. SERGIO / JORGE /[id number]
== END 2016-09-13 13:10 | disposition home or self-care (01) ==
LOC: MW.SDS 11:04
PROVIDERS: ATTEND Anesthesiology
PROC: 3E0S3BZ Introduction of Anesthetic Agent into Epidural Space, Percutaneous Approach (ICD-10-PCS; principal; 2016-09-13)
DX: G89.4 Chronic pain syndrome (principal); M51.16 Intervertebral disc disorders with radiculopathy, lumbar region; G43.109 Migraine with aura, not intractable, without status migrainosus; M79.1 Myalgia; G57.01 Lesion of sciatic nerve, right lower limb; Z88.5 Allergy status to narcotic agent; Z88.6 Allergy status to analgesic agent; Z79.891 Long term (current) use of opiate analgesic; Z79.899 Other long term (current) drug therapy; Z98.51 Tubal ligation status; Z90.89 Acquired absence of other organs; Z98.890 Other specified postprocedural states
CPT/HCPCS: 62323; J0702; J2795; Q9966

== ENCOUNTER 2017-02-04 03:22 | Inpatient (IN) | payer BC ==
--- NOTE | 2017-02-04 03:50 | EDM.PDOC ---
ED HPI GENERAL MEDICAL PROBLEM - General Chief Complaint: Back Pain or Injury Stated Complaint: EXCRUCIATING BACK PAIN Time Seen by Provider: 02/04/17 03:44 Source of Information: Reports: Patient - History of Present Illness INITIAL COMMENTS - FREE TEXT/NARRATIVE: HISTORY AND PHYSICAL: History of present illness: Patient has history of chronic low back pain with bulging discs, she has followed with Dr. contreras out of [place] neurology team, she was scheduled for surgery however her insurance had declined payment, hence she is working on this and will be seeing him within the next few weeks again. His also followed by Dr. Dan for chronic pain management She has a history of gastric bypass therefore she is not able take oral NSAIDs, morphine makes her hallucinate, she presents with 8 out of 10 intractable low back pain No footdrop saddle anesthesia bowel or urine symptoms Review of systems: As per history of present illness and below otherwise all systems reviewed and negative. Past medical history: As per history of present illness and as reviewed below otherwise noncontributory. Surgical history: As per history of present illness and as reviewed below otherwise noncontributory. Social history: No reported history of drug or alcohol abuse. Family history: As per history of present illness and as reviewed below otherwise noncontributory. Physical exam: HEENT: Atraumatic, normocephalic, pupils reactive, negative for conjunctival pallor or scleral icterus, mucous membranes moist, throat clear, neck supple, nontender, trachea midline. Lungs: Clear to auscultation, breath sounds equal bilaterally, chest nontender. Heart: S1S2, regular, negative for clicks, rubs, or JVD. Abdomen: Soft, nondistended, nontender. Negative for masses or hepatosplenomegaly. Negative for costovertebral tenderness. Pelvis: Stable nontender. Genitourinary: Deferred. Rectal: Deferred. Extremities: Atraumatic, negative for cords or calf pain. Neurovascular unremarkable. Neuro: Awake, alert, oriented. Cranial nerves II through XII unremarkable. Cerebellum unremarkable. Motor and sensory unremarkable throughout. Exam nonfocal. Diagnostics: []None Therapeutics: []Dilaudid 1 mg IV Solu-Medrol 125 mg IV 1 L normal saline bolus Impression: []Acute on chronic low back pain Definitive disposition and diagnosis as appropriate pending reevaluation and review of above. Back Pain Score (Numeric/FACES): 10 - Related Data Allergies Allergy/AdvReac Type Severity Reaction Status Date / Time morphine Allergy Nausea and Verified 02/04/17 03:34 Vomiting NSAIDS (Non-Steroidal Allergy gastric Verified 02/04/17 03:34 Anti-Inflamma bypass Home Meds: Home Meds Cholecalciferol (Vitamin D3) [Vitamin D3] 1,000 unit PO DAILY 03/03/15 [History] Multivitamin [Multi-Vitamin Daily] 1 each PO DAILY 03/03/15 [History] Omeprazole [priLOSEC OTC] 20 mg PO DAILY 03/03/15 [History] Hydrocodone/Acetaminophen [Boutte 7.5-325 Tablet] 1 each PO BID 07/05/16 [History ] Desvenlafaxine Succinate [Pristiq ER] 25 mg PO DAILY 02/04/17 [History] Diclofenac Sodium [Voltaren 1% Gel] 100 gm TOP QID 02/04/17 [History] Ketamine HCl [Ketamine Hydrochloride] 1 gm BRUCE ASDIRECTED PRN 02/04/17 [History] Lidocaine/Prilocaine [EMLA Crm] 1 dose TOP ASDIRECTED PRN 02/04/17 [History] Pregabalin [Lyrica] 50 mg PO BID 02/04/17 [History] oxyCODONE HCl/Acetaminophen [Percocet 10-325 mg Tablet] 1 each PO ASDIRECTED PRN 02/04/17 [History] tiZANidine [Zanaflex] 4 mg PO DAILY 02/04/17 [History] Past Medical History - Past Health History Medical/Surgical History: Denies Medical/Surgical History HEENT History: Reports: None Cardiovascular History: Reports: None Respiratory History: Reports: None Gastrointestinal History: Reports: None Genitourinary History: Reports: None BOMBSIGHT SPECIALIST History: Reports: Musculoskeletal History: Reports: Back Pain, Chronic Neurological History: Reports: Migraines Psychiatric History: Reports: None Endocrine/Metabolic History: Reports: Other (See Below) Other Endocrine/Metabolic History: "low tsh" Hematologic History: Reports: None Oncologic (Cancer) History: Reports: None Dermatologic History: Reports: None - Infectious Disease History Infectious Disease History: Reports: None - Past Surgical History GI Surgical History: Reports: Bariatric Procedure, Other (See Below) Female Surgical History: Reports: Tubal Ligation Social & Family History - Family History Family Medical History: Noncontributory Cardiac: Reports: Hypertension, Other (See Below) Other Cardiac Family History: Father Endocrine/Metabolic: Reports: Diabetes, type II Other Endocrine/Metabolic Family History: Father Oncologic: Reports: Other (See Below) Other Oncologic Family History: CA melanoma - Tobacco Use Smoking Status *Q: Never Smoker Second Hand Smoke Exposure: No - Caffeine Use Caffeine Use: Reports: Tea - Recreational Drug Use Recreational Drug Use: No ED ROS GENERAL - Review of Systems Review Of Systems: ROS reveals no pertinent complaints other than HPI. ED EXAM, GENERAL - Physical Exam Exam: See Below Course - Vital Signs Last Recorded V/S: Last Vital Signs Temp 97.4 F 02/04/17 03:32 Pulse 82 02/04/17 03:32 Resp 20 02/04/17 03:32 BP 124/84 02/04/17 03:32 Pulse Ox 100 02/04/17 03:32 - Orders/Labs/Meds Orders: Active Orders 24 hr Category Date Time Status Sodium Chloride 0.9% [Normal Saline] 1,000 ml Med 02/04/17 03:51 Active IV STAT Medication Orders Sodium Chloride (Normal Saline) 1,000 mls @ 999 mls/hr IV STAT ONE Stop: 02/04/17 04:51 Meds: Medications Generic Name Dose Route Start Last Admin Trade Name Freq PRN Reason Stop Dose Admin Sodium Chloride 1,000 mls @ 999 mls/hr 02/04/17 03:51 Normal Saline IV 02/04/17 04:51 STAT ONE Discontinued Medications Generic Name Dose Route Start Last Admin Trade Name Freq PRN Reason Stop Dose Admin Hydromorphone HCl 1 mg 02/04/17 03:51 Dilaudid IVPUSH 02/04/17 03:52 ONETIME ONE Methylprednisolone Sodium Succinate 125 mg 02/04/17 03:51 Solu-Medrol IVPUSH 02/04/17 03:52 ONETIME ONE Departure - Departure Time of Disposition: 03:54 Disposition: Home, Self-Care 01 Condition: Good Clinical Impression: Back pain Qualifiers: Back pain location: low back pain Chronicity: acute Back pain laterality: bilateral Sciatica presence: with sciatica presence unspecified Qualified Code(s ): M54.5 - Low back pain - Discharge Information Referrals: Cirilo Granados MD [Primary Care Provider] - Forms: ED Department Discharge Additional Instructions: The following information is given to patients seen in the emergency department who are being discharged to home. This information is to outline your options for follow-up care. We provide all patients seen in our emergency department with a follow-up referral. The need for follow-up, as well as the timing and circumstances, are variable depending upon the specifics of your emergency department visit. If you don't have a primary care physician on staff, we will provide you with a referral. We always advise you to contact your personal physician following an emergency department visit to inform them of the circumstance of the visit and for follow-up with them and/or the need for any referrals to a consulting specialist. The emergency department will also refer you to a specialist when appropriate. This referral assures that you have the opportunity for follow-up care with a specialist. All of these measure are taken in an effort to provide you with optimal care, which includes your follow-up. Under all circumstances we always encourage you to contact your private physician who remains a resource for coordinating your care. When calling for follow-up care, please make the office aware that this follow-up is from your recent emergency room visit. If for any reason you are refused follow-up, please contact the [facility] emergency department at and asked to speak to the emergency department charge nurse. - My Orders Last 24 Hours: My Active Orders 02/04/17 03:51 Sodium Chloride 0.9% [Normal Saline] 1,000 ml IV STAT - Assessment/Plan Last 24 Hours: My Active Orders 02/04/17 03:51 Sodium Chloride 0.9% [Normal Saline] 1,000 ml IV STAT
[2017-02-04] MEDS ORDERED: Sodium Chloride 0.9% 1,000 ML IV ONE (03:51)
[2017-02-04] MEDS ORDERED: methylPREDNISolone Sodium Succinate 125 MG/2 ML SDV IVPUSH ONE (03:51)
[2017-02-04] MEDS ORDERED: HYDROmorphone 1 MG/ML Syringe IVPUSH ONE (03:51)
[2017-02-04] MEDS ORDERED: HYDROmorphone 2 MG/ML Syringe IVPUSH ONE (04:41)
[2017-02-04] MEDS ORDERED: Ketorolac 30 MG/ML SDV IVPUSH ONE (07:40)
[2017-02-04] MEDS ORDERED: fentaNYL 100 MCG/2 ML SDV IVPUSH PRN (09:05)
[2017-02-04] MEDS ORDERED: Lidocaine/Prilocaine 2.5-2.5% Crm 30 GM Tube TOP PRN (10:11)
[2017-02-04] MEDS ORDERED: Acetaminophen/oxyCODONE 325-10 MG Tab PO PRN (10:11)
[2017-02-04] MEDS ORDERED: Ondansetron 4 MG Tab.DIS PO PRN (10:13)
[2017-02-04] MEDS ORDERED: Bisacodyl 5 MG Tab PO PRN (10:13)
--- NOTE | 2017-02-04 10:22 | PCM.HP ---
H&P History of Present Illness - General Date of Service: 02/04/17 Admit Problem/Dx: Admission Diagnosis/Problem Admission Diagnosis/Problem Pain Source of Information: Patient, Old Records, Provider, RN - History of Present Illness Initial Comments - Free Text/Narative: She presented to the ED with intractable back pain despite ER treatment. She has a known history of multilevel lumbar disc disease. She had been scheduled for surgery but this was cancelled due to insurance non coverage. She had done some physical therapy last Saturday with worsening of pain since then such that she can only walk with great pain and difficulty. She has no fecal incontinence. She has a long history of occasional urinary incontinence. no recent blunt force trauma. She feels paroxysms of severe muscle spasms and pain. no diarrhea or constipation she has periods of radicular pain down the right LE extending to the foot and at times down the left LE to the level anteriorly just above the knee She is feeling a little better since being admitted to observation today. Back Pain Score (Numeric/FACES): 10 - Related Data Allergies/Adverse Reactions: Allergies Allergy/AdvReac Type Severity Reaction Status Date / Time morphine Allergy Nausea and Verified 02/04/17 03:34 Vomiting NSAIDS (Non-Steroidal Allergy gastric Verified 02/04/17 03:34 Anti-Inflamma bypass Home Medications: Home Meds Cholecalciferol (Vitamin D3) [Vitamin D3] 1,000 unit PO DAILY 03/03/15 [History] Multivitamin [Multi-Vitamin Daily] 1 each PO DAILY 03/03/15 [History] Omeprazole [priLOSEC OTC] 20 mg PO DAILY 03/03/15 [History] Hydrocodone/Acetaminophen [[place] 7.5-325 Tablet] 1 each PO BID 07/05/16 [History ] Desvenlafaxine Succinate [Pristiq ER] 25 mg PO DAILY 02/04/17 [History] Diclofenac Sodium [Voltaren 1% Gel] 100 gm TOP QID 02/04/17 [History] Ketamine HCl [Ketamine Hydrochloride] 1 gm BRUCE ASDIRECTED PRN 02/04/17 [History] Lidocaine/Prilocaine [EMLA Crm] 1 dose TOP ASDIRECTED PRN 02/04/17 [History] Pregabalin [Lyrica] 50 mg PO BID 02/04/17 [History] oxyCODONE HCl/Acetaminophen [Percocet 10-325 mg Tablet] 1 each PO ASDIRECTED PRN 02/04/17 [History] tiZANidine [Zanaflex] 4 mg PO DAILY 02/04/17 [History] Past Medical History - Past Health History Medical/Surgical History: Denies Medical/Surgical History HEENT History: Reports: None Cardiovascular History: Reports: None. Denies: Hypertension, [place] Respiratory History: Reports: None. Denies: COPD Gastrointestinal History: Reports: None, Cholelithiasis (based on imagining 2016 ). Denies: Cirrhosis Genitourinary History: Reports: None. 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 Denies: Diabetes, Type II Other Endocrine/Metabolic History: "low tsh" Hematologic History: Reports: None. Denies: Anticoagulation Therapy Oncologic (Cancer) History: Reports: None Dermatologic History: Reports: None - Infectious Disease History Infectious Disease History: Reports: None - Past Surgical History GI Surgical History: Reports: Bariatric Procedure, Other (See Below) Female Surgical History: Reports: Tubal Ligation Social & Family History - Family History Family Medical History: Noncontributory Cardiac: Reports: Hypertension, Other (See Below) Other Cardiac Family History: Father Endocrine/Metabolic: Reports: Diabetes, type II Other Endocrine/Metabolic Family History: Father Oncologic: Reports: Other (See Below) Other Oncologic Family History: [place] melanoma - Tobacco Use Smoking Status *Q: Never Smoker Used Tobacco, but Quit: Yes Month Tobacco Last Used: 2000 Second Hand Smoke Exposure: No - Caffeine Use Caffeine Use: Reports: Tea - Recreational Drug Use Recreational Drug Use: No H&P Review of Systems - Review of Systems: Review Of Systems: See Below General: Reports: Decreased Appetite. Denies: Fever, Chills HEENT: Denies: Dysphasia, Sinus Congestion, Sore Throat, Vertigo Pulmonary: Denies: Shortness of Breath, Wheezing, Cough, Sputum, Hemoptysis Cardiovascular: Denies: Chest Pain Gastrointestinal: Reports: Decreased Appetite. Denies: Black Stool, Bloody Stool, Difficulty Swallowing, Hematemesis, Hematochezia, Vomiting Genitourinary: Reports: Incontinence (occasional as per HPI). Denies: Dysuria, Frequency, Burning, Hematuria Skin: Denies: Jaundice Neurological: Denies: Confusion Exam - Exam Exam: See Below - Vital Signs Vital Signs: Last Vital Signs Temp 96.9 F 02/04/17 08:35 Pulse 63 02/04/17 08:35 Resp 16 02/04/17 08:35 BP 148/83 H 02/04/17 08:54 Pulse Ox 100 02/04/17 08:35 Weight: 62.4 kg - Exam General: Alert, Oriented, Cooperative. No: Lethargic, Obtunded HEENT: EOMI, Hearing Intact, Mucosa Moist & [place] Neck: Supple, Trachea Midline Lungs: Clear to Auscultation, Normal Respiratory Effort Cardiovascular: Regular Rate, Regular Rhythm GI/Abdominal Exam: Soft, Non-Tender (Female) Exam: Deferred Rectal (Female) Exam: Deferred Extremities: No: Pedal Edema Skin: Dry, Intact Neurological: Cranial Nerves Intact, Normal Speech Neuro Extensive - Mental Status: Alert, Oriented x3 Neuro Extensive - Motor, Sensory, Reflexes: No: Facial palsy (L), Facial Palsy ( R), Hemeplagia (R), Hemeplagia (L) Psychiatric: Alert Physical Exam Comments:: She is supine with her hips and knees flexed. She describes symptoms of pain going down the right leg to the foot and down the left thigh to the knee. Because of severe pain straight leg raise testing was not performed but she has pain with knee and hip straightening. because of pain I did not test ambulation but she did report that she can ambulate with great pain. no motor asymmetry LE's noted. *Q Meaningful Use (ADM) - VTE *Q VTE Criteria *Q: - Stroke *Q Stroke Criteria *Q: - AMI *Q AMI Criteria *Q: - Problem List (1) Intractable back pain SNOMED Code(s): 829599110 ICD Code: M54.9 - DORSALGIA, UNSPECIFIED Status: Acute Current Visit: Yes (2) Intervertebral lumbar disc disorder SNOMED Code(s): 57767421 ICD Code: M51.9 - UNSP THORACIC, THORACOLUM AND LUMBOSACR INTVRT DISC DISORDER Status: Acute Current Visit: Yes Problem List Initiated/Reviewed/Updated: Yes Orders Last 24hrs: Active Orders 24 hr Category Date Time Status Oxygen Therapy [RC] PRN Care 02/04/17 10:13 Active VTE/DVT Education [RC] PER UNIT ROUTINE Care 02/04/17 10:13 Active Vital Signs [RC] Q4H Care 02/04/17 10:13 Active Regular Diet [DIET] Diet 02/04/17 Lunch Active Acetaminophen/oxyCODONE [Percocet 325-10 MG] Med 02/04/17 10:11 Ordered DOSE tab PO Q4H PRN Bisacodyl [Dulcolax] Med 02/04/17 10:13 Ordered 10 mg PO DAILY PRN Cholecalciferol (Vitamin D3) [Vitamin D3] Med 02/04/17 10:15 Ordered 1,000 unit PO DAILY Desvenlafaxine Succinate [Pristiq] Med 02/05/17 09:00 Ordered 25 mg PO DAILY Diazepam [Valium] Med 02/04/17 10:10 Active 5 mg IVPUSH Q4H PRN Diclofenac Sodium Med 02/04/17 12:00 Ordered 100 gm TOP QID Docusate Sodium [Colace] Med 02/04/17 10:15 Ordered 100 mg PO BID Enoxaparin [Lovenox] Med 02/05/17 09:00 Ordered 40 mg SUBCUT DAILY Lidocaine/Prilocaine [EMLA Crm] Med 02/04/17 10:11 Ordered DOSE gm TOP ASDIRECTED PRN Multivitamins [Tab-A-Marybeth] Med 02/04/17 10:15 Ordered DOSE tab PO DAILY Omeprazole [priLOSEC OTC] Med 02/04/17 10:15 Ordered 20 mg PO DAILY Ondansetron [Zofran ODT] Med 02/04/17 10:13 Ordered 4 mg PO Q4H PRN Pregabalin [Lyrica] Med 02/04/17 10:15 Ordered 50 mg PO BID Temazepam [Restoril] Med 02/04/17 10:13 Ordered 15 mg PO BEDTIME PRN fentaNYL [Sublimaze] Med 02/04/17 10:11 Active 75 mcg IVPUSH Q1H PRN tiZANidine [Zanaflex] Med 02/04/17 10:15 Ordered 4 mg PO DAILY Resuscitation Status Routine Resus Stat 02/04/17 10:13 Ordered Medication Orders Bisacodyl (Dulcolax) 10 mg PO DAILY PRN PRN Reason: Constipation Diazepam (Valium) 5 mg IVPUSH Q4H PRN PRN Reason: Other Docusate Sodium (Colace) 100 mg PO BID [facility] Enoxaparin Sodium (Lovenox) 40 mg SUBCUT DAILY [facility] Fentanyl (Sublimaze) 75 mcg IVPUSH Q1H PRN PRN Reason: Pain Lidocaine/Prilocaine (Emla Crm) gm TOP ASDIRECTED PRN PRN Reason: Pain Multivitamins/Minerals/Vitamin C (Tab-A-Marybeth) tab PO DAILY [facility] Non-Formulary Medication (Cholecalciferol (Vitamin D3) [Vitamin D3]) 1,000 unit PO DAILY [facility] Non-Formulary Medication (Desvenlafaxine Succinate [Pristiq]) 25 mg PO DAILY [facility] Non-Formulary Medication (Diclofenac Sodium) 100 gm TOP QID [facility] Non-Formulary Medication (Omeprazole [Prilosec Otc]) 20 mg PO DAILY [facility] Ondansetron HCl (Zofran Odt) 4 mg PO Q4H PRN PRN Reason: nausea, able to take PO Orphenadrine Citrate (Norflex) 60 mg IM Q12H [facility] Last Admin: 02/04/17 07:47 Dose: 60 mg Oxycodone/Acetaminophen (Percocet 325-10 Mg) tab PO Q4H PRN PRN Reason: Pain Pregabalin (Lyrica) 50 mg PO BID [facility] Temazepam (Restoril) 15 mg PO BEDTIME PRN PRN Reason: Sleep Tizanidine HCl (Zanaflex) 4 mg PO DAILY [facility] Assessment/Plan Comment:: will work on symptoms control observation see orders
[2017-02-04] MEDS: fentaNYL 100 MCG/2 ML SDV IVPUSH PRN ×9 (10:40→23:01)
[2017-02-04] MEDS: Docusate Sodium 100 MG Cap PO SCH ×2 (11:01→20:56)
[2017-02-04] MEDS: tiZANidine 4 MG Tab PO SCH (11:01)
[2017-02-04] MEDS: Omeprazole 20 MG Cap.CR PO SCH (11:01)
[2017-02-04 11:41] LABS: CHLORIDE,CL 113 mmol/L (98-110); SODIUM,NA 140 mmol/L (136-146)
[2017-02-04] MEDS: Pregabalin 50 MG Cap PO SCH ×2 (13:13→20:56)
[2017-02-04] MEDS: Cholecalciferol (Vitamin D3) 1,000 Unit Tab PO SCH (13:13)
[2017-02-04] MEDS: Multivitamins with Iron/Calcium/Folic Acid/Minerals Tab PO SCH (13:47)
[2017-02-04] MEDS: Acetaminophen/oxyCODONE 325-10 MG Tab PO SCH (21:57)
[2017-02-04] MEDS: Temazepam 15 MG Cap PO PRN (23:01)
[2017-02-05] MEDS: fentaNYL 100 MCG/2 ML SDV IVPUSH PRN ×8 (01:52→09:07)
[2017-02-05] MEDS: Acetaminophen/oxyCODONE 325-10 MG Tab PO SCH ×2 (04:01→19:26)
[2017-02-05] MEDS: Enoxaparin 40 MG/0.4 ML Syringe SUBCUT SCH (08:55)
[2017-02-05] MEDS: Desvenlafaxine Succinate [Pristiq] 25 MG PO SCH (09:00)
[2017-02-05] MEDS: Cholecalciferol (Vitamin D3) 1,000 Unit Tab PO SCH (09:01)
[2017-02-05] MEDS: tiZANidine 4 MG Tab PO SCH (09:02)
[2017-02-05] MEDS: Omeprazole 20 MG Cap.CR PO SCH (09:02)
[2017-02-05] MEDS: Pregabalin 50 MG Cap PO SCH ×2 (09:02→20:09)
[2017-02-05] MEDS: Multivitamins with Iron/Calcium/Folic Acid/Minerals Tab PO SCH (09:02)
[2017-02-05] MEDS: Docusate Sodium 100 MG Cap PO SCH ×2 (09:02→20:09)
--- NOTE | 2017-02-05 10:30 | PCM.PN ---
- General Info Date of Service: 02/05/17 Subjective Update: Nurses report she had a respiratory rate of 9 /minute and seemed very sedated so last scheduled percocet was held. Nurses also reported that yesterday she because angry cursing when speaking with staff about her pain. - Patient Data Vitals - Most Recent: Last Vital Signs Temp 98.2 F 02/05/17 04:00 Pulse 64 02/05/17 04:00 Resp 16 02/05/17 05:00 BP 123/77 02/05/17 04:00 Pulse Ox 97 02/05/17 04:00 Weight - Most Recent: 62.4 kg Lab Results Last 24 Hours: Laboratory Results - last 24 hr 02/04/17 02/04/17 02/04/17 Range/Units 10:44 10:44 10:44 WBC 3.76 L (4.0-11.0) K/uL RBC 4.23 L (4.30-5.90) M/uL Hgb 12.1 (12.0-16.0) g/dL Hct 37.6 (36.0-46.0) % MCV 88.9 (80.0-98.0) fL MCH 28.6 (27.0-32.0) pg MCHC 32.2 (31.0-37.0) g/dL RDW Std Deviation 71.4 H (28.0-62.0) fl RDW Coeff of [place] 23 H (11.0-15.0) % Plt Count 226 (150-400) K/uL MPV 9.80 (7.40-12.00) fL Neut % (Auto) 88.5 H (48.0-80.0) % Lymph % (Auto) 10.4 L (16.0-40.0) % [place] % (Auto) 0.8 (0.0-15.0) % Eos % (Auto) 0.0 (0.0-7.0) % Baso % (Auto) 0.3 (0.0-1.5) % Neut # (Auto) 3.3 (1.4-5.7) K/uL Lymph # (Auto) 0.4 L (0.6-2.4) K/uL [place] # (Auto) 0.0 (0.0-0.8) K/uL Eos # (Auto) 0.0 (0.0-0.7) K/uL Baso # (Auto) 0.0 (0.0-0.1) K/uL Nucleated RBC % 0.0 /100WBC Nucleated RBCs # 0 K/uL Sodium 140 (136-146) mmol/L Potassium 4.0 (3.5-5.1) mmol/L Chloride 113 H (98-110) mmol/L Carbon Dioxide 19 L (21-31) mmol/L BUN 16 (6.0-23.0) mg/dL Creatinine 0.7 (0.6-1.5) mg/dL Est Cr Clr Drug Dosing 109.08 mL/min Estimated GFR (MDRD) > 60.0 ml/min Glucose 137 H (60-110) mg/dL Calcium 8.8 (8.8-10.8) mg/dL Magnesium 1.5 (1.5-2.3) mEq/L Total Bilirubin 0.3 (0.1-1.5) mg/dL AST 14 (5-40) IU/L ALT 9 (8-54) IU/L Alkaline Phosphatase 71 (40-150) Total Protein 6.3 (6.0-8.0) g/dL Albumin 3.7 (3.5-5.0) g/dL Globulin 2.6 (2.0-3.5) g/dL Albumin/Globulin Ratio 1.4 Free T4 (0.7-1.48) ng/dL TSH 3rd Generation (0.47-5.0) uIU/mL HCG, Qual NEGATIVE (NEG) Urine Color Urine Appearance Urine pH (5.0-8.0) Ur Specific [place] (1.001-1.035) Urine Protein (NEGATIVE) mg/dL Urine Glucose (UA) (NEGATIVE) mg/dL Urine Ketones (NEGATIVE) mg/dL Urine Occult Blood (NEGATIVE) Urine Nitrite (NEGATIVE) Urine Bilirubin (NEGATIVE) Urine Urobilinogen (<2.0) EU/dL Ur Leukocyte Esterase (NEGATIVE) Urine RBC (0-2/HPF) Urine WBC (0-5/HPF) Ur Epithelial Cells (NONE-FEW) Urine Bacteria (NEGATIVE) 02/04/17 02/04/17 Range/Units 10:44 14:45 WBC (4.0-11.0) K/uL RBC (4.30-5.90) M/uL Hgb (12.0-16.0) g/dL Hct (36.0-46.0) % MCV (80.0-98.0) fL MCH (27.0-32.0) pg MCHC (31.0-37.0) g/dL RDW Std Deviation (28.0-62.0) fl RDW Coeff of [place] (11.0-15.0) % Plt Count (150-400) K/uL MPV (7.40-12.00) fL Neut % (Auto) (48.0-80.0) % Lymph % (Auto) (16.0-40.0) % [place] % (Auto) (0.0-15.0) % Eos % (Auto) (0.0-7.0) % Baso % (Auto) (0.0-1.5) % Neut # (Auto) (1.4-5.7) K/uL Lymph # (Auto) (0.6-2.4) K/uL [place] # (Auto) (0.0-0.8) K/uL Eos # (Auto) (0.0-0.7) K/uL Baso # (Auto) (0.0-0.1) K/uL Nucleated RBC % /100WBC Nucleated RBCs # K/uL Sodium (136-146) mmol/L Potassium (3.5-5.1) mmol/L Chloride (98-110) mmol/L Carbon Dioxide (21-31) mmol/L BUN (6.0-23.0) mg/dL Creatinine (0.6-1.5) mg/dL Est Cr Clr Drug Dosing mL/min Estimated GFR (MDRD) ml/min Glucose (60-110) mg/dL Calcium (8.8-10.8) mg/dL Magnesium (1.5-2.3) mEq/L Total Bilirubin (0.1-1.5) mg/dL AST (5-40) IU/L ALT (8-54) IU/L Alkaline Phosphatase (40-150) Total Protein (6.0-8.0) g/dL Albumin (3.5-5.0) g/dL Globulin (2.0-3.5) g/dL Albumin/Globulin Ratio Free T4 0.80 (0.7-1.48) ng/dL TSH 3rd Generation 0.19 L (0.47-5.0) uIU/mL HCG, Qual (NEG) Urine Color YELLOW Urine Appearance CLEAR Urine pH 6.0 (5.0-8.0) Ur Specific [place] >= 1.030 (1.001-1.035) Urine Protein NEGATIVE (NEGATIVE) mg/dL Urine Glucose (UA) 500 H (NEGATIVE) mg/dL Urine Ketones TRACE H (NEGATIVE) mg/dL Urine Occult Blood NEGATIVE (NEGATIVE) Urine Nitrite NEGATIVE (NEGATIVE) Urine Bilirubin NEGATIVE (NEGATIVE) Urine Urobilinogen 0.2 (<2.0) EU/dL Ur Leukocyte Esterase NEGATIVE (NEGATIVE) Urine RBC 0-1 (0-2/HPF) Urine WBC 0-1 (0-5/HPF) Ur Epithelial Cells RARE (NONE-FEW) Urine Bacteria RARE (NEGATIVE) Med Orders - Current: Current Medications Bisacodyl (Dulcolax) 10 mg PO DAILY PRN PRN Reason: Constipation Cholecalciferol (Vitamin D3) 1,000 units PO DAILY [facility] Last Admin: 02/05/17 09:01 Dose: 1,000 units Docusate Sodium (Colace) 100 mg PO BID [facility] Last Admin: 02/05/17 09:02 Dose: 100 mg Enoxaparin Sodium (Lovenox) 40 mg SUBCUT DAILY [facility] Last Admin: 02/05/17 08:55 Dose: 40 mg Hydromorphone HCl (Dilaudid) 2 mg PO Q2H PRN PRN Reason: Pain Lidocaine/Prilocaine (Emla Crm) 0 gm TOP ASDIRECTED PRN PRN Reason: Pain Multivitamins/Minerals (Thera M Plus) 1 tab PO DAILY [facility] Last Admin: 02/05/17 09:02 Dose: 1 tab Omeprazole (Omeprazole) 20 mg PO DAILY [facility] Last Admin: 02/05/17 09:02 Dose: 20 mg Ondansetron HCl (Zofran Odt) 4 mg PO Q4H PRN PRN Reason: nausea, able to take PO Orphenadrine Citrate (Norflex) 60 mg IM Q12H [facility] Last Admin: 02/05/17 08:24 Dose: 60 mg Desvenlafaxine Succinate [Pristiq] 25 Mg 1 each PO DAILY [facility] Diclofenac Sodium (100 Gm Gel) 0 each TOP QID [facility] Last Admin: 02/05/17 06:05 Dose: Not Given Pregabalin (Lyrica) 50 mg PO BID [facility] Last Admin: 02/05/17 09:02 Dose: 50 mg Temazepam (Restoril) 15 mg PO BEDTIME PRN PRN Reason: Sleep Last Admin: 02/04/17 23:01 Dose: 15 mg Tizanidine HCl (Zanaflex) 4 mg PO DAILY [facility] Last Admin: 02/05/17 09:02 Dose: 4 mg Discontinued Medications Diazepam (Valium) 5 mg IVPUSH Q4H PRN PRN Reason: Other Last Admin: 02/05/17 09:17 Dose: 5 mg Fentanyl (Sublimaze) 50 mcg IVPUSH Q1H PRN PRN Reason: Pain Last Admin: 02/04/17 09:19 Dose: 50 mcg Fentanyl (Sublimaze) 75 mcg IVPUSH Q1H PRN PRN Reason: Pain Last Admin: 02/05/17 09:07 Dose: 75 mcg Hydromorphone HCl (Dilaudid) 1 mg IVPUSH ONETIME ONE Stop: 02/04/17 03:52 Last Admin: 02/04/17 04:03 Dose: 1 mg Hydromorphone HCl (Dilaudid) 1 mg IVPUSH ONETIME ONE Stop: 02/04/17 04:42 Last Admin: 02/04/17 04:47 Dose: 1 mg Sodium Chloride (Normal Saline) 1,000 mls @ 999 mls/hr IV STAT ONE Stop: 02/04/17 04:51 Last Admin: 02/04/17 04:06 Dose: 999 mls/hr Ketorolac Tromethamine (Toradol) 30 mg IVPUSH ONETIME ONE Stop: 02/04/17 07:41 Last Admin: 02/04/17 07:46 Dose: 30 mg Methylprednisolone Sodium Succinate (Solu-Medrol) 125 mg IVPUSH ONETIME ONE Stop: 02/04/17 03:52 Last Admin: 02/04/17 04:03 Dose: 125 mg Oxycodone/Acetaminophen (Percocet 325-10 Mg) 1 tab PO Q4H PRN PRN Reason: Pain Last Admin: 02/04/17 16:00 Dose: 1 tab Oxycodone/Acetaminophen (Percocet 325-10 Mg) 1 tab PO Q6H [facility] Last Admin: 02/05/17 04:01 Dose: 1 tab - Exam General: Alert, Cooperative, Sedated Neck: Supple Lungs: Normal Respiratory Effort Back Exam: Other (tenderness diffusely over the lumbar region) - Problem List & Annotations (1) Intractable back pain SNOMED Code(s): 140221681 Code(s): M54.9 - DORSALGIA, UNSPECIFIED Status: Acute Current Visit: Yes (2) Intervertebral lumbar disc disorder SNOMED Code(s): 67845488 Code(s): M51.9 - UNSP THORACIC, THORACOLUM AND LUMBOSACR INTVRT DISC DISORDER Status: Acute Current Visit: Yes - Problem List Review Problem List Initiated/Reviewed/Updated: Yes - My Orders Last 24 Hours: My Active Orders 02/04/17 10:11 Lidocaine/Prilocaine [EMLA Crm] 0 gm TOP ASDIRECTED PRN 02/04/17 10:13 Oxygen Therapy [RC] PRN VTE/DVT Education [RC] PER UNIT ROUTINE Vital Signs [RC] Q4H Bisacodyl [Dulcolax] 10 mg PO DAILY PRN Ondansetron [Zofran ODT] 4 mg PO Q4H PRN Temazepam [Restoril] 15 mg PO BEDTIME PRN Resuscitation Status Routine 02/04/17 10:15 Cholecalciferol (Vitamin D3) [Vitamin D3] 1,000 units PO DAILY Docusate Sodium [Colace] 100 mg PO BID Multivitamins w-Iron/Ca/FA/Min [Thera M Plus] 1 tab PO DAILY Omeprazole 20 mg PO DAILY Pregabalin [Lyrica] 50 mg PO BID tiZANidine [Zanaflex] 4 mg PO DAILY 02/04/17 12:00 Patient's Own Medication [Ptom] 0 each TOP QID 02/04/17 Lunch Regular Diet [DIET] 02/05/17 09:00 Enoxaparin [Lovenox] 40 mg SUBCUT DAILY Patient's Own Medication [Ptom] 1 each PO DAILY 02/05/17 10:25 HYDROmorphone [Dilaudid] 2 mg PO Q2H PRN - Plan Plan:: will work on symptoms control observation see orders 02/05/2017 She declined physical therapy and consideration of detention placement. Will change to po meds with the objective to discharge home tomorrow. Repeat MRI of the L spine today. Florentino Yoo MD
[2017-02-05] MEDS: HYDROmorphone 2 MG Tab PO PRN ×5 (12:02→22:00)
[2017-02-05] MEDS ORDERED: fentaNYL 100 MCG/2 ML SDV IVPUSH ONE (14:02)
[2017-02-05] MEDS ORDERED: fentaNYL 75 MCG/HR Transdermal Patch TRDERM SCH (14:15)
[2017-02-05] MEDS: Diazepam 5 MG Tab PO PRN (14:42)
[2017-02-05] MEDS: Temazepam 15 MG Cap PO PRN (22:01)
[2017-02-06] MEDS: Diazepam 5 MG Tab PO PRN ×4 (01:43→20:11)
[2017-02-06] MEDS: HYDROmorphone 2 MG Tab PO PRN ×7 (01:43→21:09)
[2017-02-06] MEDS ORDERED: fentaNYL 100 MCG/2 ML SDV IVPUSH ONE (02:44)
[2017-02-06] MEDS ORDERED: fentaNYL 100 MCG/HR Transdermal Patch TRDERM SCH (03:00)
[2017-02-06] MEDS: Desvenlafaxine Succinate [Pristiq] 25 MG PO SCH (09:00)
--- NOTE | 2017-02-06 09:05 | MR ---
EXAMINATION: MRI lumbar spine HISTORY: Pain COMPARISON: Radiographs dated 09/20/2016 TECHNIQUE: Multiplanar and multisequence imaging obtained through the lumbar spine without contrast. FINDINGS: The lumbar spinal alignment is normal. The vertebral body heights appear maintained. There is no abnormal bone marrow signal. Subtle endplate signal changes noted at L5. The distal spinal cord appears normal and the conus terminates at L1-L2. Visualized retroperitoneal structures are normal. SI joints are symmetric. T12-L1: Unremarkable. L1-L2: Unremarkable. L2-L3: Small diffuse disc bulge without significant spinal canal stenosis or neural foraminal stenosi s. L3-L4: Small diffuse disc bulge without significant spinal canal or neural foraminal stenosis. L4-L5: Small diffuse disc bulge with a midline extrusion component resulting in mild spinal canal enzo nosis. Mild bilateral neural foraminal stenosis. L5-S1: Small diffuse disc bulge asymmetric to the right without significant spinal canal stenosis. Mi ld left and [id number] right neural foraminal stenosis. IMPRESSION: 1. Multilevel degenerative disc disease noted within the lumbar spine with individual details above.
[2017-02-06] MEDS: Pregabalin 50 MG Cap PO SCH ×2 (09:13→21:08)
[2017-02-06] MEDS: Cholecalciferol (Vitamin D3) 1,000 Unit Tab PO SCH (09:13)
[2017-02-06] MEDS: Omeprazole 20 MG Cap.CR PO SCH (09:13)
[2017-02-06] MEDS: tiZANidine 4 MG Tab PO SCH (09:13)
[2017-02-06] MEDS: Multivitamins with Iron/Calcium/Folic Acid/Minerals Tab PO SCH (09:13)
[2017-02-06] MEDS: Docusate Sodium 100 MG Cap PO SCH ×2 (09:13→21:08)
[2017-02-06] MEDS: Enoxaparin 40 MG/0.4 ML Syringe SUBCUT SCH (09:16)
[2017-02-06] MEDS ORDERED: Diazepam 5 MG Tab PO PRN (09:31)
--- NOTE | 2017-02-06 10:02 | PCM.PN ---
- General Info Date of Service: 02/06/17 Subjective Update: She was able to sleep about three hours at a time last night. She still has severe pain, worse with severe paroxysms of muscle spasms. She had a normal BM yesterday. no vomiting. - Patient Data Vitals - Most Recent: Last Vital Signs Temp 98 F 02/06/17 04:00 Pulse 61 02/06/17 04:00 Resp 16 02/06/17 04:00 BP 113/64 02/06/17 04:00 Pulse Ox 99 02/06/17 04:00 Weight - Most Recent: 62.4 kg Med Orders - Current: Current Medications Bisacodyl (Dulcolax) 10 mg PO DAILY PRN PRN Reason: Constipation Cholecalciferol (Vitamin D3) 1,000 units PO DAILY [facility] Last Admin: 02/06/17 09:13 Dose: 1,000 units Diazepam (Valium.) 5 mg PO Q6H PRN PRN Reason: Muscle Spasm Docusate Sodium (Colace) 100 mg PO BID [facility] Last Admin: 02/06/17 09:13 Dose: 100 mg Enoxaparin Sodium (Lovenox) 40 mg SUBCUT DAILY [facility] Last Admin: 02/06/17 09:16 Dose: 40 mg Fentanyl (Duragesic) 100 mcg TRDERM Q72H [facility] Last Admin: 02/06/17 03:02 Dose: 100 mcg Hydromorphone HCl (Dilaudid) 2 mg PO Q2H PRN PRN Reason: Pain Last Admin: 02/06/17 07:24 Dose: 2 mg Lidocaine/Prilocaine (Emla Crm) 0 gm TOP ASDIRECTED PRN PRN Reason: Pain Multivitamins/Minerals (Thera M Plus) 1 tab PO DAILY [facility] Last Admin: 02/06/17 09:13 Dose: 1 tab Omeprazole (Omeprazole) 20 mg PO DAILY [facility] Last Admin: 02/06/17 09:13 Dose: 20 mg Ondansetron HCl (Zofran Odt) 4 mg PO Q4H PRN PRN Reason: nausea, able to take PO Orphenadrine Citrate (Norflex) 60 mg IM Q12H [facility] Last Admin: 02/06/17 08:01 Dose: 60 mg Desvenlafaxine Succinate [Pristiq] 25 Mg 1 each PO DAILY [facility] Last Admin: 02/05/17 09:00 Dose: 1 each Diclofenac Sodium (100 Gm Gel) 0 each TOP QID [facility] Last Admin: 02/06/17 02:06 Dose: Not Given Pregabalin (Lyrica) 50 mg PO BID [facility] Last Admin: 02/06/17 09:13 Dose: 50 mg Temazepam (Restoril) 15 mg PO BEDTIME PRN PRN Reason: Sleep Last Admin: 02/05/17 22:01 Dose: 15 mg Tizanidine HCl (Zanaflex) 4 mg PO DAILY [facility] Last Admin: 02/06/17 09:13 Dose: 4 mg Discontinued Medications Diazepam (Valium) 5 mg IVPUSH Q4H PRN PRN Reason: Other Last Admin: 02/05/17 09:17 Dose: 5 mg Diazepam (Valium.) 5 mg PO TID PRN PRN Reason: Muscle Spasm Last Admin: 02/06/17 01:43 Dose: 5 mg Fentanyl (Sublimaze) 50 mcg IVPUSH Q1H PRN PRN Reason: Pain Last Admin: 02/04/17 09:19 Dose: 50 mcg Fentanyl (Sublimaze) 75 mcg IVPUSH Q1H PRN PRN Reason: Pain Last Admin: 02/05/17 09:07 Dose: 75 mcg Fentanyl (Sublimaze) 75 mcg IVPUSH ONETIME ONE Stop: 02/05/17 14:03 Last Admin: 02/05/17 14:21 Dose: 75 mcg Fentanyl (Duragesic) 75 mcg TRDERM Q72H [facility] Last Admin: 02/05/17 14:28 Dose: 75 mcg Fentanyl (Sublimaze) 50 mcg IVPUSH ONETIME ONE Stop: 02/06/17 02:45 Last Admin: 02/06/17 02:58 Dose: 50 mcg Hydromorphone HCl (Dilaudid) 1 mg IVPUSH ONETIME ONE Stop: 02/04/17 03:52 Last Admin: 02/04/17 04:03 Dose: 1 mg Hydromorphone HCl (Dilaudid) 1 mg IVPUSH ONETIME ONE Stop: 02/04/17 04:42 Last Admin: 02/04/17 04:47 Dose: 1 mg Sodium Chloride (Normal Saline) 1,000 mls @ 999 mls/hr IV STAT ONE Stop: 02/04/17 04:51 Last Admin: 02/04/17 04:06 Dose: 999 mls/hr Ketorolac Tromethamine (Toradol) 30 mg IVPUSH ONETIME ONE Stop: 02/04/17 07:41 Last Admin: 02/04/17 07:46 Dose: 30 mg Methylprednisolone Sodium Succinate (Solu-Medrol) 125 mg IVPUSH ONETIME ONE Stop: 02/04/17 03:52 Last Admin: 02/04/17 04:03 Dose: 125 mg Oxycodone/Acetaminophen (Percocet 325-10 Mg) 1 tab PO Q4H PRN PRN Reason: Pain Last Admin: 02/04/17 16:00 Dose: 1 tab Oxycodone/Acetaminophen (Percocet 325-10 Mg) 1 tab PO Q6H [facility] Last Admin: 02/05/17 19:26 Dose: Not Given - Exam General: Alert, Cooperative Physical Findings Comments:: moderate mid to low back tenderness. - Problem List & Annotations (1) Intractable back pain SNOMED Code(s): 086188528 Code(s): M54.9 - DORSALGIA, UNSPECIFIED Status: Acute Current Visit: Yes (2) Intervertebral lumbar disc disorder SNOMED Code(s): 97357449 Code(s): M51.9 - UNSP THORACIC, THORACOLUM AND LUMBOSACR INTVRT DISC DISORDER Status: Acute Current Visit: Yes - Problem List Review Problem List Initiated/Reviewed/Updated: Yes - My Orders Last 24 Hours: My Active Orders 02/05/17 09:00 Enoxaparin [Lovenox] 40 mg SUBCUT DAILY Patient's Own Medication [Ptom] 1 each PO DAILY 02/05/17 10:25 HYDROmorphone [Dilaudid] 2 mg PO Q2H PRN 02/06/17 03:00 fentaNYL [Duragesic] 100 mcg TRDERM Q72H 02/06/17 09:31 Diazepam [Valium] 5 mg PO Q6H PRN - Plan Plan:: will work on symptoms control observation see orders 02/05/2017 She declined physical therapy and consideration of shelter placement. Will change to po meds with the objective to discharge home tomorrow. Repeat MRI of the L spine today. Florentino Yoo MD 02/06/2017 Titrate dilaudid and valium Anticipate discharge tomorrow. Florentino Yoo MD
[2017-02-06] MEDS: Temazepam 15 MG Cap PO PRN (22:53)
[2017-02-07] MEDS: HYDROmorphone 2 MG Tab PO PRN ×6 (00:07→15:37)
[2017-02-07] MEDS: Diazepam 5 MG Tab PO PRN ×5 (00:08→16:34)
[2017-02-07] MEDS ORDERED: fentaNYL 100 MCG/2 ML SDV IVPUSH ONE (01:00)
[2017-02-07 08:40] VITALS: BP 119/69
[2017-02-07] MEDS: Pregabalin 50 MG Cap PO SCH (09:31)
[2017-02-07] MEDS: Cholecalciferol (Vitamin D3) 1,000 Unit Tab PO SCH (09:31)
[2017-02-07] MEDS: Docusate Sodium 100 MG Cap PO SCH (09:31)
[2017-02-07] MEDS: Omeprazole 20 MG Cap.CR PO SCH (09:31)
[2017-02-07] MEDS: tiZANidine 4 MG Tab PO SCH (09:31)
[2017-02-07] MEDS: Enoxaparin 40 MG/0.4 ML Syringe SUBCUT SCH (09:33)
--- NOTE | 2017-02-07 09:52 | PCM.DCSUM1 ---
Discharge Summary - Hospital Course Brief History: She was admitted with intractable back pain. - Discharge Data Discharge Date: 02/07/17 Discharge Disposition: Home, Self-Care 01 Condition: Fair - Discharge Diagnosis/Problem(s) (1) Intractable back pain SNOMED Code(s): 857018123 ICD Code: M54.9 - DORSALGIA, UNSPECIFIED Status: Acute Current Visit: Yes (2) Intervertebral lumbar disc disorder SNOMED Code(s): 18399044 ICD Code: M51.9 - UNSP THORACIC, THORACOLUM AND LUMBOSACR INTVRT DISC DISORDER Status: Acute Current Visit: Yes - Patient Summary/Data Hospital Course: her opioid analgesics were titrated. She had a bowel movement on the day before discharge. AT discharge she feels that she can manage at home. She was given valium for muscle relaxant effects. She has follow up on February 14 arranged for evaluation for consideration of surgical intervention. She has been advised regarding hazards of opioid use including addiction and sedation and constipation. - Discharge Plan Home Medications: Home Meds Cholecalciferol (Vitamin D3) [Vitamin D3] 1,000 unit PO DAILY 03/03/15 [History] Multivitamin [Multi-Vitamin Daily] 1 each PO DAILY 03/03/15 [History] Omeprazole [priLOSEC OTC] 20 mg PO DAILY 03/03/15 [History] Hydrocodone/Acetaminophen [[place] 7.5-325 Tablet] 1 each PO BID 07/05/16 [History ] Desvenlafaxine Succinate [Pristiq ER] 25 mg PO DAILY 02/04/17 [History] Diclofenac Sodium [Voltaren 1% Gel] 100 gm TOP QID 02/04/17 [History] Ketamine HCl [Ketamine Hydrochloride] 1 gm BRUCE ASDIRECTED PRN 02/04/17 [History] Lidocaine/Prilocaine [EMLA Crm] 1 dose TOP ASDIRECTED PRN 02/04/17 [History] Pregabalin [Lyrica] 50 mg PO BID 02/04/17 [History] oxyCODONE HCl/Acetaminophen [Percocet 10-325 mg Tablet] 1 each PO ASDIRECTED PRN 02/04/17 [History] tiZANidine [Zanaflex] 4 mg PO DAILY 02/04/17 [History] Patient Handouts: Back Pain, Adult, [id number] Forms: ED Department Discharge Referrals: [facility] [Outside] Cirilo Granados MD [Primary Care Provider] - 02/13/17 9:00 am - Patient Data Vitals - Most Recent: Last Vital Signs Temp 98.6 F 02/07/17 07:35 Pulse 62 02/07/17 07:35 Resp 15 02/07/17 07:35 BP 119/69 02/07/17 07:35 Pulse Ox 99 02/07/17 07:35 Weight - Most Recent: 62.4 kg Med Orders - Current: Current Medications Bisacodyl (Dulcolax) 10 mg PO DAILY PRN PRN Reason: Constipation Cholecalciferol (Vitamin D3) 1,000 units PO DAILY [facility] Last Admin: 02/07/17 09:31 Dose: 1,000 units Diazepam (Valium.) 5 mg PO Q4H PRN PRN Reason: Muscle Spasm Last Admin: 02/07/17 08:09 Dose: 5 mg Docusate Sodium (Colace) 100 mg PO BID [facility] Last Admin: 02/07/17 09:31 Dose: 100 mg Enoxaparin Sodium (Lovenox) 40 mg SUBCUT DAILY [facility] Last Admin: 02/07/17 09:33 Dose: 40 mg Fentanyl (Duragesic) 100 mcg TRDERM Q72H [facility] Last Admin: 02/06/17 03:02 Dose: 100 mcg Hydromorphone HCl (Dilaudid) 4 mg PO Q3H PRN PRN Reason: Pain Last Admin: 02/07/17 09:30 Dose: 4 mg Lidocaine/Prilocaine (Emla Crm) 0 gm TOP ASDIRECTED PRN PRN Reason: Pain Multivitamins/Minerals (Thera M Plus) 1 tab PO DAILY [facility] Last Admin: 02/06/17 09:13 Dose: 1 tab Omeprazole (Omeprazole) 20 mg PO DAILY [facility] Last Admin: 02/07/17 09:31 Dose: 20 mg Ondansetron HCl (Zofran Odt) 4 mg PO Q4H PRN PRN Reason: nausea, able to take PO Orphenadrine Citrate (Norflex) 60 mg IM Q12H [facility] Last Admin: 02/07/17 08:06 Dose: 60 mg Desvenlafaxine Succinate [Pristiq] 25 Mg 1 each PO DAILY [facility] Last Admin: 02/06/17 09:00 Dose: 1 each Diclofenac Sodium (100 Gm Gel) 0 each TOP QID [facility] Last Admin: 02/07/17 07:25 Dose: Not Given Pregabalin (Lyrica) 50 mg PO BID [facility] Last Admin: 02/07/17 09:31 Dose: 50 mg Temazepam (Restoril) 15 mg PO BEDTIME PRN PRN Reason: Sleep Last Admin: 02/06/17 22:53 Dose: 15 mg Tizanidine HCl (Zanaflex) 4 mg PO DAILY [facility] Last Admin: 02/07/17 09:31 Dose: 4 mg Discontinued Medications Diazepam (Valium) 5 mg IVPUSH Q4H PRN PRN Reason: Other Last Admin: 02/05/17 09:17 Dose: 5 mg Diazepam (Valium.) 5 mg PO TID PRN PRN Reason: Muscle Spasm Last Admin: 02/06/17 01:43 Dose: 5 mg Diazepam (Valium.) 5 mg PO Q6H PRN PRN Reason: Muscle Spasm Fentanyl (Sublimaze) 50 mcg IVPUSH Q1H PRN PRN Reason: Pain Last Admin: 02/04/17 09:19 Dose: 50 mcg Fentanyl (Sublimaze) 75 mcg IVPUSH Q1H PRN PRN Reason: Pain Last Admin: 02/05/17 09:07 Dose: 75 mcg Fentanyl (Sublimaze) 75 mcg IVPUSH ONETIME ONE Stop: 02/05/17 14:03 Last Admin: 02/05/17 14:21 Dose: 75 mcg Fentanyl (Duragesic) 75 mcg TRDERM Q72H [facility] Last Admin: 02/05/17 14:28 Dose: 75 mcg Fentanyl (Sublimaze) 50 mcg IVPUSH ONETIME ONE Stop: 02/06/17 02:45 Last Admin: 02/06/17 02:58 Dose: 50 mcg Fentanyl (Sublimaze) 75 mcg IVPUSH NOW ONE Stop: 02/07/17 01:01 Last Admin: 02/07/17 01:22 Dose: 75 mcg Hydromorphone HCl (Dilaudid) 1 mg IVPUSH ONETIME ONE Stop: 02/04/17 03:52 Last Admin: 02/04/17 04:03 Dose: 1 mg Hydromorphone HCl (Dilaudid) 1 mg IVPUSH ONETIME ONE Stop: 02/04/17 04:42 Last Admin: 02/04/17 04:47 Dose: 1 mg Hydromorphone HCl (Dilaudid) 2 mg PO Q2H PRN PRN Reason: Pain Last Admin: 02/06/17 07:24 Dose: 2 mg Sodium Chloride (Normal Saline) 1,000 mls @ 999 mls/hr IV STAT ONE Stop: 02/04/17 04:51 Last Admin: 02/04/17 04:06 Dose: 999 mls/hr Ketorolac Tromethamine (Toradol) 30 mg IVPUSH ONETIME ONE Stop: 02/04/17 07:41 Last Admin: 02/04/17 07:46 Dose: 30 mg Methylprednisolone Sodium Succinate (Solu-Medrol) 125 mg IVPUSH ONETIME ONE Stop: 02/04/17 03:52 Last Admin: 02/04/17 04:03 Dose: 125 mg Oxycodone/Acetaminophen (Percocet 325-10 Mg) 1 tab PO Q4H PRN PRN Reason: Pain Last Admin: 02/04/17 16:00 Dose: 1 tab Oxycodone/Acetaminophen (Percocet 325-10 Mg) 1 tab PO Q6H [facility] Last Admin: 02/05/17 19:26 Dose: Not Given *Q Meaningful Use (DIS) - VTE *Q VTE Criteria *Q: - Stroke *Q Stroke Criteria *Q: - AMI *Q AMI Criteria *Q:
[2017-02-07] MEDS: Desvenlafaxine Succinate [Pristiq] 25 MG PO SCH (10:32)
[2017-02-07] MEDS: Multivitamins with Iron/Calcium/Folic Acid/Minerals Tab PO SCH (10:33)
== END 2017-02-07 16:40 | disposition home or self-care (01) | DRG 347 ==
LOC: MW.ED 03:22 → MW.OB 08:02 → OBSVTOIN 02-06 11:12 → MW.OB 02-06 13:03
PROVIDERS: ADMIT Family Medicine; ATTEND Family Medicine
DX: M51.9 Unspecified thoracic, thoracolumbar and lumbosacral intervertebral disc disorder (principal); Z79.899 Other long term (current) drug therapy; Z88.5 Allergy status to narcotic agent; Z88.8 Allergy status to other drugs, medicaments and biological substances
CPT/HCPCS: 36415; 72148; 72148-26; 80053; 81001; 83735; 84439; 84443; 84703; 85025; 96361; 96372; 96374; 96375; 96376; 97161-GP; 99283-25; 99284; A9270-GY; G0378; J1170; J1650; J1885; J2360; J2930; J3010; J3360; J7040

== ENCOUNTER 2017-03-14 11:45 | Day surgery (SDC) | payer BC ==
[2017-03-14] MEDS ORDERED: Betamethasone Acetate/Betamethasone Sod Phosphate 30 MG/5 ML MDV ONE (14:03)
[2017-03-14] MEDS ORDERED: Ropivacaine 0.5% 5 MG/ML 30 ML SDV ONE (14:03)
[2017-03-14] MEDS ORDERED: Iopamidol 408 MG/ML 50 ML SDV ONE (14:03)
--- NOTE | 2017-03-14 19:35 | OR ---
SURGEON: Cordelia Ibarra D.O. DATE OF PROCEDURE: 03/14/2017 OR STAFF PRESENT: 1. Kole Navarrete RN. 2. Bal Bennett RN. 3. Kole Vega RN. 4. Quan Case, RT. WOUND CLASSIFICATION: I. PREOPERATIVE DIAGNOSES: 1. Lumbar herniated disk. 2. Lumbar radiculopathy. 3. Chronic pain syndrome. POSTOPERATIVE DIAGNOSES: 1. Lumbar herniated disk. 2. Lumbar radiculopathy. 3. Chronic pain syndrome. PROCEDURES PERFORMED: 1. Caudal epidural steroid injection. 2. Fluoroscopic guidance for needle placement. 3. Local with oral Valium for sedation. SCREENING QUESTIONS: The patient answered "no" to all of the following questions: 1. Are you allergic to latex? 2. Do you have a bleeding disorder? 3. Do you have any current local or systemic infections? 4. Are you taking any anti-inflammatories or blood thinners? 5. Do you have any joint replacements, heart valve replacements, or a pacemaker? DESCRIPTION OF PROCEDURE: The patient had the procedure thoroughly explained including all possible risks, benefits and alternatives. Consent was signed in my clinic indicating understanding and willingness to proceed. The patient presented to [facility] and was escorted to the dressing room to disrobe and change into a hospital gown. Preoperative vital signs were taken and stable. The patient reported that Valium was taken prior to the procedure. The patient was brought back to the procedure room and placed in the prone position on the procedure room table. A pillow was placed under the hips in order to flatten the lumbar lordosis. The back was prepped with ChloraPrep and sterilely draped. All personnel in the operating room were dressed in appropriate attire including surgical scrubs, head and shoe covers. This was to ensure sterility while in the treatment room. During the time fluoroscopy was in use, all personnel in the operating room wore lead haile with thyroid collars. Sterile technique was used throughout the procedure. The patient was awake and conversant throughout the procedure. There was no evidence of infection at the site of needle insertion. Skeletal landmarks were identified under fluoroscopy for the caudal epidural. Skin was anesthetized with 2% lidocaine with a sterile 27-gauge 1.5 inch needle. Then a 20-gauge Tuohy epidural needle was placed in the epidural space with loss of resistance technique under fluoroscopic guidance. No heme, cerebrospinal fluid, or paresthesias were noted. Isovue-200 contrast dye was injected in 0.2 cubic centimeter increments and seen to outline the epidural space in both AP and lateral views. There was no intravascular flow pattern observed under live fluoroscopy. Then 12 milligrams of Celestone was slowly injected after negative aspiration. The patient tolerated the procedure well. Vital signs were stable during and after the procedure. The staff escorted the patient to the recovery area and the patient was released in stable condition after a brief stay in the recovery room monitored by the nurse. The patient was given both oral and written discharge and follow up instructions with recommendation to follow up given for 2-3 weeks. The patient voiced understanding including understanding of those signs and symptoms that would require emergency care. The patient knows how to contact the office if there are any additional problems or questions in the meantime. PREOPERATIVE PAIN: 7/10. POSTOPERATIVE PAIN: 5/10. FOLLOWUP: Follow up in the Pain Clinic in 2 to 3 weeks. SERGIO / JORGE /[id number]
== END 2017-03-14 13:52 | disposition home or self-care (01) ==
LOC: MW.SDS 11:45
PROVIDERS: ATTEND Anesthesiology
DX: G89.4 Chronic pain syndrome (principal); M51.16 Intervertebral disc disorders with radiculopathy, lumbar region; F41.9 Anxiety disorder, unspecified; F32.9 Major depressive disorder, single episode, unspecified; G43.109 Migraine with aura, not intractable, without status migrainosus; M79.1 Myalgia; Z88.8 Allergy status to other drugs, medicaments and biological substances; Z88.5 Allergy status to narcotic agent; Z79.899 Other long term (current) drug therapy; Z90.89 Acquired absence of other organs; Z98.51 Tubal ligation status
CPT/HCPCS: 62323; J0702; J2795; Q9966

== ENCOUNTER 2017-05-13 19:10 | Emergency (ER) | payer BC ==
[2017-05-13] MEDS ORDERED: HYDROmorphone 2 MG/ML SDV IVPUSH ONE ×2 (19:36→19:39)
[2017-05-13] MEDS ORDERED: Sodium Chloride 0.9% 1,000 ML IV ONE (19:36)
[2017-05-13] MEDS ORDERED: Sodium Chloride 0.9% 2.5 ML Syringe FLUSH PRN (19:36)
[2017-05-13] MEDS ORDERED: Ondansetron 4 MG/2 ML SDV IVPUSH ONE (19:36)
[2017-05-13] MEDS ORDERED: Sodium Chloride 0.9% 10 ML Syringe FLUSH PRN (19:36)
--- NOTE | 2017-05-13 19:39 | EDM.PDOC ---
ED HPI GENERAL MEDICAL PROBLEM - General Chief Complaint: Respiratory Problem Stated Complaint: VOMITTING AND COUGHING Time Seen by Provider: 05/13/17 19:30 - History of Present Illness INITIAL COMMENTS - FREE TEXT/NARRATIVE: HISTORY AND PHYSICAL: History of present illness: The patient is a 36-year-old female with no pulmonary history but who has had a gastric bypass is that she has a marginal ulcer that has been diagnosed but has been stable as well as chronic lower back pain for which she sees our pain clinic and presents with a three-day history of cough which has been nonproductive and intermittent vomiting subjective fevers. She has body aches for the last 3 days but no nasal drainage and no diarrhea. She says the vomiting is not a surly associated with the cough but happen sporadically over the last 3 days but today she has had more vomiting with her by mouth intake. She does not have any medication for nausea or vomiting at home. She's not been able to take her pain meds today she says that her back is hurting. She has no new back pain or changes in the character of her pain is just her classic chronic pain. She has no urinary complaints Review of systems: As per history of present illness and below otherwise all systems reviewed and negative. Past medical history: As per history of present illness and as reviewed below otherwise noncontributory. Surgical history: As per history of present illness and as reviewed below otherwise noncontributory. Social history: No reported history of drug or alcohol abuse. Family history: As per history of present illness and as reviewed below otherwise noncontributory. Physical exam: Gen.: Well-developed thin female who is nontoxic and vital signs of been reviewed by me. Speech is normal HEENT: Atraumatic, normocephalic, pupils reactive, negative for conjunctival pallor or scleral icterus, mucous membranes moist, throat clear, neck supple, nontender, trachea midline. No cervical adenopathy or nuchal rigidity Lungs: Clear to auscultation, breath sounds equal bilaterally, chest nontender. No work of breathing stridor or wheezing Heart: S1S2, regular, negative for clicks, rubs, or JVD. Abdomen: Soft, nondistended, nontender. Bowel sounds are slightly hypoactive Negative for masses or hepatosplenomegaly. Pelvis: Stable nontender. Genitourinary: Deferred. Rectal: Deferred. Extremities: Atraumatic, negative for cords or calf pain. Neurovascular unremarkable. Neuro: Awake, alert, oriented. Cranial nerves II through XII unremarkable. Cerebellum unremarkable. Motor and sensory unremarkable throughout. Exam nonfocal. Diagnostics: CBC CMP influenza Therapeutics: IV fluids Zofran Dilaudid Patient is aware of all testing results and says she does feel improved. I will give her Zofran for home and recommend symptomatic care for the cough congestion and viral symptoms. Impression: Viral illness with cough, vomiting improved Definitive disposition and diagnosis as appropriate pending reevaluation and review of above. low back Pain Score (Numeric/FACES): 7 - Related Data Allergies Allergy/AdvReac Type Severity Reaction Status Date / Time morphine Allergy Nausea and Verified 05/13/17 19:18 Vomiting NSAIDS (Non-Steroidal Allergy gastric Verified 05/13/17 19:18 Anti-Inflamma bypass Home Meds: Home Meds Cholecalciferol (Vitamin D3) [Vitamin D3] 1,000 unit PO DAILY 03/03/15 [History] Omeprazole [priLOSEC OTC] 20 mg PO BID 03/03/15 [History] Desvenlafaxine Succinate [Pristiq] 25 mg PO DAILY 02/04/17 [History] Diclofenac Sodium [Voltaren 1% Gel] 100 gm TOP QID 02/04/17 [History] Lidocaine/Prilocaine [EMLA Crm] 1 dose TOP ASDIRECTED PRN 02/04/17 [History] Pregabalin [Lyrica] 50 mg PO BID 02/04/17 [History] tiZANidine [Zanaflex] 4 mg PO DAILY 02/04/17 [History] Morphine Sulfate [Morphine Sulfate ER] 15 mg PO BID 05/13/17 [History] Sucralfate [Carafate] 1 tab PO QID 05/13/17 [History] Sulfamethoxazole/Trimethoprim [Bactrim Ds Tablet] 1 tab PO BID 05/13/17 [History ] oxyCODONE [Oxycodone HCl] 10 mg PO ASDIRECTED 05/13/17 [History] Past Medical History - Past Health History Medical/Surgical History: Denies Medical/Surgical History HEENT History: Reports: None Cardiovascular History: Reports: None Respiratory History: Reports: None Gastrointestinal History: Reports: Celiac Disease, Cholelithiasis Genitourinary History: Reports: None. 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: Musculoskeletal History: Reports: Back Pain, Chronic Neurological History: Reports: Migraines Psychiatric History: Reports: Other (See Below) Endocrine/Metabolic History: Reports: Other (See Below) Other Endocrine/Metabolic History: "low tsh" Hematologic History: Reports: None Oncologic (Cancer) History: Reports: None Dermatologic History: Reports: None - Infectious Disease History Infectious Disease History: Reports: None - Past Surgical History GI Surgical History: Reports: Bariatric Procedure, Cholecystectomy, Hernia, Abdominal, Other (See Below) Other GI Surgeries/Procedures: Gastric Bypass Female Surgical History: Reports: Tubal Ligation Musculoskeletal Surgical History: Reports: Other (See Below) Other Musculoskeletal Surgeries/Procedures:: baxk sx Social & Family History - Family History Family Medical History: Noncontributory Cardiac: Reports: Hypertension, Other (See Below) Other Cardiac Family History: Father GI: Reports: Bowel Obstruction, Cholelithiasis, Diverticulitis, Irritable Bowel Syndrome, Pancreatitis : Reports: Renal Calculus OBGYN: Reports: Musculoskeletal: Reports: Arthritis, Back pain, Chronic, Fibromyalgia, Gout, Osteoarthritis, RA Neurological: Reports: Migraines, Neuropathy, Diabetic Psychiatric: Reports: Anxiety, Bipolar, Depression, Mood Swings, PTSD, Schizophrenia Endocrine/Metabolic: Reports: Diabetes, type II Other Endocrine/Metabolic Family History: Father Hematologic: Reports: Anemia Oncologic: Reports: Other (See Below) Other Oncologic Family History: CA melanoma - Tobacco Use Smoking Status *Q: Never Smoker Years of Tobacco use: 3 Packs/Tins Daily: 0.2 Used Tobacco, but Quit: Yes Month Tobacco Last Used: 2000 Second Hand Smoke Exposure: No - Caffeine Use Caffeine Use: Reports: Tea - Recreational Drug Use Recreational Drug Use: No ED ROS GENERAL - Review of Systems Review Of Systems: ROS reveals no pertinent complaints other than HPI. ED EXAM, GENERAL - Physical Exam Exam: See Below (See dictation) Course - Vital Signs Last Recorded V/S: Last Vital Signs Temp 36.7 C 05/13/17 19:10 Pulse 106 H 05/13/17 19:10 Resp 20 05/13/17 19:10 BP 130/98 H 05/13/17 19:10 Pulse Ox 96 05/13/17 19:10 - Orders/Labs/Meds Orders: Active Orders 24 hr Category Date Time Status Sodium Chloride 0.9% [Saline Flush] Med 05/13/17 19:36 Active 10 ml FLUSH ASDIRECTED PRN Sodium Chloride 0.9% [Saline Flush] Med 05/13/17 19:36 Active 2.5 ml FLUSH ASDIRECTED PRN Saline Lock Insert [OM.PC] Stat Oth 05/13/17 19:36 Ordered Medication Orders Sodium Chloride (Saline Flush) 10 ml FLUSH ASDIRECTED PRN PRN Reason: Keep Vein Open Sodium Chloride (Saline Flush) 2.5 ml FLUSH ASDIRECTED PRN PRN Reason: Keep Vein Open Labs: Laboratory Tests 05/13/17 05/13/17 Range/Units 20:00 20:00 WBC 5.01 (4.0-11.0) K/uL RBC 4.24 L (4.30-5.90) M/uL Hgb 13.1 (12.0-16.0) g/dL Hct 39.3 (36.0-46.0) % MCV 92.7 (80.0-98.0) fL MCH 30.9 (27.0-32.0) pg MCHC 33.3 (31.0-37.0) g/dL RDW Std Deviation 46.7 (28.0-62.0) fl RDW Coeff of [place] 14 (11.0-15.0) % Plt Count 321 (150-400) K/uL MPV 9.30 (7.40-12.00) fL Neut % (Auto) 62.4 (48.0-80.0) % Lymph % (Auto) 25.0 (16.0-40.0) % [place] % (Auto) 7.6 (0.0-15.0) % Eos % (Auto) 4.6 (0.0-7.0) % Baso % (Auto) 0.4 (0.0-1.5) % Neut # (Auto) 3.1 (1.4-5.7) K/uL Lymph # (Auto) 1.3 (0.6-2.4) K/uL [place] # (Auto) 0.4 (0.0-0.8) K/uL Eos # (Auto) 0.2 (0.0-0.7) K/uL Baso # (Auto) 0.0 (0.0-0.1) K/uL Nucleated RBC % 0.0 /100WBC Nucleated RBCs # 0 K/uL Sodium 140 (136-145) mmol/L Potassium 4.3 (3.5-5.1) mmol/L Chloride 103 (98-107) mmol/L Carbon Dioxide 27.5 (21.0-32.0) mmol/L BUN 15 (7.0-18.0) mg/dL Creatinine 0.8 (0.6-1.0) mg/dL Est Cr Clr Drug Dosing 88.32 mL/min Estimated GFR (MDRD) > 60.0 ml/min Glucose 104 (74-106) mg/dL Calcium 9.5 (8.5-10.1) mg/dL Total Bilirubin 0.4 (0.2-1.0) mg/dL AST 18 (15-37) IU/L ALT 17 (14-63) IU/L Alkaline Phosphatase 117 H (46-116) U/L Total Protein 7.2 (6.4-8.2) g/dL Albumin 3.3 L (3.4-5.0) g/dL Globulin 3.9 H (2.0-3.5) g/dL Albumin/Globulin Ratio 0.9 L (1.3-2.8) Meds: Medications Generic Name Dose Route Start Last Admin Trade Name Georgiq PRN Reason Stop Dose Admin Sodium Chloride 10 ml 05/13/17 19:36 Saline Flush FLUSH ASDIRECTED PRN Keep Vein Open Sodium Chloride 2.5 ml 05/13/17 19:36 Saline Flush FLUSH ASDIRECTED PRN Keep Vein Open Discontinued Medications Generic Name Dose Route Start Last Admin Trade Name Georgiq PRN Reason Stop Dose Admin Hydromorphone HCl 0.5 mg 05/13/17 19:36 Dilaudid IVPUSH 05/13/17 19:37 ONETIME ONE Hydromorphone HCl 1 mg 05/13/17 19:39 05/13/17 20:11 Dilaudid IVPUSH 05/13/17 19:40 1 mg ONETIME ONE Administration Sodium Chloride 1,000 mls @ 999 mls/hr 05/13/17 19:36 05/13/17 20:07 Normal Saline IV 05/13/17 20:36 999 mls/hr STAT ONE Administration Ondansetron HCl 4 mg 05/13/17 19:36 05/13/17 20:11 Zofran IVPUSH 05/13/17 19:37 4 mg ONETIME ONE Administration Departure - Departure Time of Disposition: 21:05 Disposition: Home, Self-Care 01 Condition: Good Clinical Impression: Viral URI with cough Vomiting Qualifiers: Vomiting type: unspecified Vomiting Intractability: non-intractable Nausea presence: with nausea Qualified Code(s): R11.2 - Nausea with vomiting, unspecified - Discharge Information Referrals: Cirilo Granados MD [Primary Care Provider] - Forms: ED Department Discharge Additional Instructions: The following information is given to patients seen in the emergency department who are being discharged to home. This information is to outline your options for follow-up care. We provide all patients seen in our emergency department with a follow-up referral. The need for follow-up, as well as the timing and circumstances, are variable depending upon the specifics of your emergency department visit. If you don't have a primary care physician on staff, we will provide you with a referral. We always advise you to contact your personal physician following an emergency department visit to inform them of the circumstance of the visit and for follow-up with them and/or the need for any referrals to a consulting specialist. The emergency department will also refer you to a specialist when appropriate. This referral assures that you have the opportunity for followup care with a specialist. All of these measure are taken in an effort to provide you with optimal care, which includes your followup. Under all circumstances we always encourage you to contact your private physician who remains a resource for coordinating your care. When calling for followup care, please make the office aware that this follow-up is from your recent emergency room visit. If for any reason you are refused follow-up, please contact the [facility] emergency department at and ask to speak to the emergency department charge nurse. [facility] Primary care- Internal Medicine and Family [address] [address] Push hydration and avoid caffeinated products. 8 bland bites of food and take all your home medications as previously. Use Zofran as needed for nausea and vomiting return to ER as needed and as discussed. These call and schedule a follow-up appointment with your provider in the clinic in the next few days - My Orders Last 24 Hours: My Active Orders 05/13/17 19:36 Sodium Chloride 0.9% [Saline Flush] 10 ml FLUSH ASDIRECTED PRN Sodium Chloride 0.9% [Saline Flush] 2.5 ml FLUSH ASDIRECTED PRN Saline Lock Insert [OM.PC] Stat - Assessment/Plan Last 24 Hours: My Active Orders 05/13/17 19:36 Sodium Chloride 0.9% [Saline Flush] 10 ml FLUSH ASDIRECTED PRN Sodium Chloride 0.9% [Saline Flush] 2.5 ml FLUSH ASDIRECTED PRN Saline Lock Insert [OM.PC] Stat
[2017-05-13 20:37] LABS: CHLORIDE,CL 103 mmol/L (98-107); SODIUM,NA 140 mmol/L (136-145)
[2017-05-13 21:17] VITALS: BP 127/81
== END 2017-05-13 21:35 | disposition home or self-care (01) ==
LOC: MW.ED 19:10
DX: J06.9 Acute upper respiratory infection, unspecified (principal); R11.2 Nausea with vomiting, unspecified; Z90.49 Acquired absence of other specified parts of digestive tract; Z98.84 Bariatric surgery status; Z87.891 Personal history of nicotine dependence; Z79.899 Other long term (current) drug therapy; Z88.5 Allergy status to narcotic agent; Z88.8 Allergy status to other drugs, medicaments and biological substances
CPT/HCPCS: 36415; 80053; 85025; 87804; 96361; 96374; 96375; 99284; J1170; J2405; J7040; 99283

== ENCOUNTER 2017-12-03 01:45 | Emergency (ER) | payer BC ==
[2017-12-03] MEDS ORDERED: Albuterol/Ipratropium 3.0-0.5 MG/3 ML Neb Soln ONE (01:49)
[2017-12-03] MEDS ORDERED: Ketorolac 30 MG/ML SDV IVPUSH ONE (01:50)
[2017-12-03] MEDS ORDERED: Sodium Chloride 0.9% 1,000 ML IV ONE (01:51)
--- NOTE | 2017-12-03 02:08 | EDM.PDOC ---
ED HPI GENERAL MEDICAL PROBLEM - General Chief Complaint: Respiratory Problem Stated Complaint: SHORTNESS OF BREATH, PAIN IN SIDE Time Seen by Provider: 12/03/17 01:47 Source of Information: Reports: Patient History Limitations: Reports: No Limitations - History of Present Illness INITIAL COMMENTS - FREE TEXT/NARRATIVE: HISTORY AND PHYSICAL: History of present illness: 37-year-old female presenting to emergency department with chief complaint of right upper back/rib pain starting this evening. Patient states that she has had a sore throat, productive cough, and sinus congestion for the past 2-3 days. Having yellow-green sputum production. This evening she began to have right upper back pain. She denies trauma to the area. Is more superior to the kidneys. It is sharp and stabbing and constant. Currently 4 out of 10. Denies any associated abdominal pain, nausea, vomiting, diarrhea, or other signs of systemic infection. Patient does have a history of chronic back. She requests no narcotics as she has had problems with them in the past. Patient denies any history of coagulation disorders, hemoptysis, or leg pain. Denies any pain with urination, urgency or hematuria. On exam patient has acute tenderness to the right upper back just below the right scapula. No bony defects noted. Review of systems: As per history of present illness and below otherwise all systems reviewed and negative. Past medical history: As per history of present illness and as reviewed below otherwise noncontributory. Surgical history: As per history of present illness and as reviewed below otherwise noncontributory. Social history: No reported history of drug or alcohol abuse. Family history: As per history of present illness and as reviewed below otherwise noncontributory. Physical exam: HEENT: Atraumatic, normocephalic, pupils reactive, negative for conjunctival pallor or scleral icterus, mucous membranes moist, throat clear, neck supple, nontender, trachea midline. Lungs: Clear to auscultation, breath sounds equal bilaterally, chest nontender. Heart: S1S2, regular, negative for clicks, rubs, or JVD. Abdomen: Soft, nondistended, nontender. Negative for masses or hepatosplenomegaly. Negative for costovertebral tenderness. Pelvis: Stable nontender. Genitourinary: Deferred. Rectal: Deferred. Extremities: Atraumatic, negative for cords or calf pain. Neurovascular unremarkable. Neuro: Awake, alert, oriented. Cranial nerves II through XII unremarkable. Cerebellum unremarkable. Motor and sensory unremarkable throughout. Exam nonfocal. Diagnostics: CBC, CMP, UA/UC, rapid strep, chest x-ray Therapeutics: 1 L normal saline, Toradol 30 mg IV 1 Impression: Rib pain Productive cough Plan: Chest x-ray revealed a mild infiltrate in the medial basilar segment of the right lower lobe representing probable early right lower lobe pneumonia. Patient 's pain most likely related to this new pneumonia. Patient was given prescription for azithromycin and instructed to follow-up with primary care provider for follow-up. She should return to emergency department if any new or worsening symptoms. Definitive disposition and diagnosis as appropriate pending reevaluation and review of above. Right Upper Back Pain Score (Numeric/FACES): 4 - Related Data Allergies Allergy/AdvReac Type Severity Reaction Status Date / Time morphine Allergy Nausea and Verified 12/03/17 01:57 Vomiting NSAIDS (Non-Steroidal Allergy gastric Verified 12/03/17 01:57 Anti-Inflamma bypass Home Meds: Home Meds Omeprazole [priLOSEC OTC] 20 mg PO BID 03/03/15 [History] Desvenlafaxine Succinate [Pristiq] 25 mg PO DAILY 02/04/17 [History] Azithromycin [Zithromax] 250 mg PO DAILY #6 tab 12/03/17 [Rx] lamoTRIgine [Lamictal] 1 tab PO BID 12/03/17 [History] Past Medical History - Past Health History Medical/Surgical History: Denies Medical/Surgical History HEENT History: Reports: None Cardiovascular History: Reports: None Respiratory History: Reports: None Gastrointestinal History: Reports: Celiac Disease, Cholelithiasis Genitourinary History: Reports: None. 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: Musculoskeletal History: Reports: Back Pain, Chronic Neurological History: Reports: Migraines Psychiatric History: Reports: Other (See Below) Endocrine/Metabolic History: Reports: Other (See Below) Other Endocrine/Metabolic History: "low tsh" Hematologic History: Reports: None Oncologic (Cancer) History: Reports: None Dermatologic History: Reports: None - Infectious Disease History Infectious Disease History: Reports: None - Past Surgical History GI Surgical History: Reports: Bariatric Procedure, Cholecystectomy, Hernia, Abdominal, Other (See Below) Other GI Surgeries/Procedures: Gastric Bypass Female Surgical History: Reports: Tubal Ligation Musculoskeletal Surgical History: Reports: Other (See Below) Other Musculoskeletal Surgeries/Procedures:: baxk sx Social & Family History - Family History Family Medical History: Noncontributory Cardiac: Reports: Hypertension, Other (See Below) Other Cardiac Family History: Father GI: Reports: Bowel Obstruction, Cholelithiasis, Diverticulitis, Irritable Bowel Syndrome, Pancreatitis : Reports: Renal Calculus OBGYN: Reports: Musculoskeletal: Reports: Arthritis, Back pain, Chronic, Fibromyalgia, Gout, Osteoarthritis, RA Neurological: Reports: Migraines, Neuropathy, Diabetic Psychiatric: Reports: Anxiety, Bipolar, Depression, Mood Swings, PTSD, Schizophrenia Endocrine/Metabolic: Reports: Diabetes, type II Other Endocrine/Metabolic Family History: Father Hematologic: Reports: Anemia Oncologic: Reports: Other (See Below) Other Oncologic Family History: CA melanoma - Caffeine Use Caffeine Use: Reports: Tea ED ROS GENERAL - Review of Systems Review Of Systems: ROS reveals no pertinent complaints other than HPI. ED EXAM, GENERAL - Physical Exam Exam: See Below Course - Vital Signs Last Recorded V/S: Last Vital Signs Temp 99.5 F 12/03/17 01:52 Pulse 114 H 12/03/17 01:52 Resp BP 139/89 12/03/17 01:52 Pulse Ox 97 12/03/17 01:52 - Orders/Labs/Meds Orders: Active Orders 24 hr Category Date Time Status CXR [Chest 2V] [CR] Stat Exams 12/03/17 01:55 Taken CULTURE URINE [RM] Stat Lab 12/03/17 02:08 Received STREP SCRN A RAPID W CULT CONF [RM] Stat Lab 12/03/17 02:08 Ordered Sodium Chloride 0.9% [Normal Saline] 1,000 ml Med 12/03/17 01:51 Active IV STAT Medication Orders Sodium Chloride (Normal Saline) 1,000 mls @ 999 mls/hr IV STAT ONE Stop: 12/03/17 02:51 Last Admin: 12/03/17 02:25 Dose: 999 mls/hr Labs: Laboratory Tests 12/03/17 12/03/17 12/03/17 Range/Units 02:00 02:00 02:08 WBC 12.50 H (4.0-11.0) K/uL RBC 4.31 (4.30-5.90) M/uL Hgb 11.8 L (12.0-16.0) g/dL Hct 37.1 (36.0-46.0) % MCV 86.1 (80.0-98.0) fL MCH 27.4 (27.0-32.0) pg MCHC 31.8 (31.0-37.0) g/dL RDW Std Deviation 45.3 (28.0-62.0) fl RDW Coeff of [place] 14 (11.0-15.0) % Plt Count 386 (150-400) K/uL MPV 8.90 (7.40-12.00) fL Neut % (Auto) 91.3 H (48.0-80.0) % Lymph % (Auto) 3.3 L (16.0-40.0) % [place] % (Auto) 4.9 (0.0-15.0) % Eos % (Auto) 0.3 (0.0-7.0) % Baso % (Auto) 0.2 (0.0-1.5) % Neut # (Auto) 11.4 H (1.4-5.7) K/uL Lymph # (Auto) 0.4 L (0.6-2.4) K/uL [place] # (Auto) 0.6 (0.0-0.8) K/uL Eos # (Auto) 0.0 (0.0-0.7) K/uL Baso # (Auto) 0.0 (0.0-0.1) K/uL Nucleated RBC % 0.0 /100WBC Nucleated RBCs # 0 K/uL Sodium 138 (136-145) mmol/L Potassium 3.5 (3.5-5.1) mmol/L Chloride 103 (98-107) mmol/L Carbon Dioxide 26.0 (21.0-32.0) mmol/L BUN 7 (7.0-18.0) mg/dL Creatinine 0.8 (0.6-1.0) mg/dL Est Cr Clr Drug Dosing 91.01 mL/min Estimated GFR (MDRD) > 60.0 ml/min Glucose 156 H (74-106) mg/dL Calcium 8.9 (8.5-10.1) mg/dL Total Bilirubin 0.3 (0.2-1.0) mg/dL AST 34 (15-37) IU/L ALT 62 (14-63) IU/L Alkaline Phosphatase 194 H (46-116) U/L Total Protein 7.5 (6.4-8.2) g/dL Albumin 3.3 L (3.4-5.0) g/dL Globulin 4.2 H (2.0-3.5) g/dL Albumin/Globulin Ratio 0.8 L (1.3-2.8) Urine Color YELLOW Urine Appearance CLEAR Urine pH 8.0 (5.0-8.0) Ur Specific [place] 1.020 (1.001-1.035) Urine Protein NEGATIVE (NEGATIVE) mg/dL Urine Glucose (UA) 100 H (NEGATIVE) mg/dL Urine Ketones NEGATIVE (NEGATIVE) mg/dL Urine Occult Blood NEGATIVE (NEGATIVE) Urine Nitrite NEGATIVE (NEGATIVE) Urine Bilirubin NEGATIVE (NEGATIVE) Urine Urobilinogen 1.0 (<2.0) EU/dL Ur Leukocyte Esterase NEGATIVE (NEGATIVE) Urine RBC 0-1 (0-2/HPF) Urine WBC 0-1 (0-5/HPF) Ur Epithelial Cells RARE (NONE-FEW) Urine Bacteria RARE (NEGATIVE) Meds: Medications Generic Name Dose Route Start Last Admin Trade Name Freq PRN Reason Stop Dose Admin Sodium Chloride 1,000 mls @ 999 mls/hr 12/03/17 01:51 12/03/17 02:25 Normal Saline IV 12/03/17 02:51 999 mls/hr STAT ONE Administration Discontinued Medications Generic Name Dose Route Start Last Admin Trade Name Freq PRN Reason Stop Dose Admin Albuterol/Ipratropium Confirm 12/03/17 01:49 Duoneb 3.0-0.5 Mg/3 Ml Administered 12/03/17 01:50 Dose 3 ml .ROUTE .STK-MED ONE Ketorolac Tromethamine 30 mg 12/03/17 01:50 12/03/17 02:05 Toradol IVPUSH 12/03/17 01:51 30 mg ONETIME ONE Administration Departure - Departure Time of Disposition: 02:44 Disposition: Home, Self-Care 01 Condition: Good Clinical Impression: Cough productive of yellow sputum, Rib pain on right side Community acquired pneumonia Qualifiers: Laterality: right Lung location: lower lobe of lung Qualified Code(s): J18.1 - Lobar pneumonia, unspecified organism - Discharge Information Prescriptions: Azithromycin [Zithromax] 250 mg PO DAILY #6 tab Referrals: PCP,None [Primary Care Provider] - Forms: ED Department Discharge Additional Instructions: My general discharge The following information is given to patients seen in the emergency department who are being discharged to home. This information is to outline your options for follow-up care. We provide all patients seen in our emergency department with a follow-up referral. The need for follow-up, as well as the timing and circumstances, are variable depending upon the specifics of your emergency department visit. If you don't have a primary care physician on staff, we will provide you with a referral. We always advise you to contact your personal physician following an emergency department visit to inform them of the circumstance of the visit and for follow-up with them and/or the need for any referrals to a consulting specialist. The emergency department will also refer you to a specialist when appropriate. This referral assures that you have the opportunity for follow-up care with a specialist. All of these measure are taken in an effort to provide you with optimal care, which includes your follow-up. Under all circumstances we always encourage you to contact your private physician who remains a resource for coordinating your care. When calling for follow-up care, please make the office aware that this follow-up is from your recent emergency room visit. If for any reason you are refused follow-up, please contact the [facility] Emergency Department at and asked to speak to the emergency department charge nurse. [facility] [address] [place] [id number] Please call your primary care provider tomorrow to schedule a follow-up appointment. Be sure to tell them that you were seen in the emergency department and they wish for you to be seen as soon as possible. Take antibiotics as prescribed. Return to the emergency department if any new or worsening symptoms. - My Orders Last 24 Hours: My Active Orders 12/03/17 01:51 Sodium Chloride 0.9% [Normal Saline] 1,000 ml IV STAT 12/03/17 01:55 CXR [Chest 2V] [CR] Stat 12/03/17 02:08 CULTURE URINE [RM] Stat STREP SCRN A RAPID W CULT CONF [RM] Stat - Assessment/Plan Last 24 Hours: My Active Orders 12/03/17 01:51 Sodium Chloride 0.9% [Normal Saline] 1,000 ml IV STAT 12/03/17 01:55 CXR [Chest 2V] [CR] Stat 12/03/17 02:08 CULTURE URINE [RM] Stat STREP SCRN A RAPID W CULT CONF [RM] Stat
[2017-12-03 02:25] LABS: CHLORIDE,CL 103 mmol/L (98-107); SODIUM,NA 138 mmol/L (136-145)
[2017-12-03 03:21] VITALS: BP 131/84
--- NOTE | 2017-12-03 09:47 | CR ---
EXAM DATE: 12/03/17 PATIENT'S AGE: 37 Patient: FAMILIA THOMPSON Facility: [place], [place] Site . Site : 1980 Study: XRay Chest [id number] 2:24:39 AM Ordering Physician: Vishal Alan Final Report: INDICATION: Shortness of breath and cough. COMPARISON: None available. FINDINGS: PA and lateral views of the chest were obtained. There is mild consolidation of the medial right infrahilar lung, in the medial basilar segment of the right lower lobe. This could be an early area of pneumonia. The rest of the chest is clear. The heart is normal in size. The mediastinum is normal in appearance. The osseous structures are normal in appearance for the patient`s age. IMPRESSION: MILD INFILTRATE IN THE MEDIAL BASILAR SEGMENT OF THE RIGHT LOWER LOBE, PROBABLY EARLY RIGHT LOWER LOBE PNEUMONIA. Dictated by Bill Salmon MD @ Dec 03 2017 2:38AM (Electronic Signature) Report Signed by Proxy. EGE
== END 2017-12-03 03:08 | disposition home or self-care (01) ==
LOC: MW.ED 01:45
DX: J18.9 Pneumonia, unspecified organism (principal); M54.6 Pain in thoracic spine; R07.81 Pleurodynia; Z88.5 Allergy status to narcotic agent; Z88.8 Allergy status to other drugs, medicaments and biological substances; Z79.899 Other long term (current) drug therapy
CPT/HCPCS: 36415; 71046; 80053; 81001; 85025; 87081; 87086; 87880; 96361; 96374; 99284; J1885; J7040; 99283

== ENCOUNTER 2020-10-30 18:08 | Emergency (ER) | payer BC ==
--- NOTE | 2020-10-30 19:29 | EDM.PDOC ---
ED HPI GENERAL MEDICAL PROBLEM - General Chief Complaint: Respiratory Problem Stated Complaint: FEVER, HEADACHE, COUGH Time Seen by Provider: 10/30/20 19:18 Source of Information: Reports: Patient History Limitations: Reports: No Limitations - History of Present Illness INITIAL COMMENTS - FREE TEXT/NARRATIVE: Patient is a 40-year-old female who presents today for headache cough and fatigue. Patient states that her mom recently tested positive for Covid and she was with her a few days ago. She states that since then since Saturday she has been having this fatigue and cough. She occasionally has some left-sided chest pain with cough. Pain may work with ambulation. Patient denies any associated symptoms. Pt denies any real shortness of breath. She is mostly here for the fatigue and headaches. She rarely gets migraines and tried her regular meds without relief. She denies any vision changes any neurological planes or change mental status. Patient also reports she is vaccinated. head and generalized full body Pain Score (Numeric/FACES): 8 - Related Data Allergies Allergy/AdvReac Type Severity Reaction Status Date / Time morphine Allergy Nausea and Verified 10/30/20 19:27 Vomiting NSAIDS (Non-Steroidal Allergy gastric Verified 10/30/20 19:27 Anti-Inflamma bypass Home Meds: Home Meds Omeprazole [priLOSEC OTC] 20 mg PO BID 03/03/15 [History] Desvenlafaxine Succinate [Pristiq] 25 mg PO DAILY 02/04/17 [History] Azithromycin [Zithromax] 250 mg PO DAILY #6 tab 12/03/17 [Rx] lamoTRIgine [Lamictal] 1 tab PO BID 12/03/17 [History] Past Medical History - Past Health History Medical/Surgical History: Denies Medical/Surgical History HEENT History: Reports: None Cardiovascular History: Reports: None Respiratory History: Reports: None Gastrointestinal History: Reports: Celiac Disease, Cholelithiasis Genitourinary History: Reports: None. 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: Musculoskeletal History: Reports: Back Pain, Chronic Neurological History: Reports: Migraines Psychiatric History: Reports: Other (See Below) Endocrine/Metabolic History: Reports: Other (See Below) Other Endocrine/Metabolic History: "low tsh" Hematologic History: Reports: None Oncologic (Cancer) History: Reports: None Dermatologic History: Reports: None - Infectious Disease History Infectious Disease History: Reports: None - Past Surgical History GI Surgical History: Reports: Bariatric Procedure, Cholecystectomy, Hernia, Abdominal, Other (See Below) Other GI Surgeries/Procedures: Gastric Bypass Female Surgical History: Reports: Tubal Ligation Musculoskeletal Surgical History: Reports: Other (See Below) Other Musculoskeletal Surgeries/Procedures:: baxk sx Social & Family History - Family History Family Medical History: No Pertinent Family History Cardiac: Reports: Hypertension, Other (See Below) Other Cardiac Family History: Father GI: Reports: Bowel Obstruction, Cholelithiasis, Diverticulitis, Irritable Bowel Syndrome, Pancreatitis : Reports: Renal Calculus OBGYN: Reports: Musculoskeletal: Reports: Arthritis, Back pain, Chronic, Fibromyalgia, Gout, Osteoarthritis, RA Neurological: Reports: Migraines, Neuropathy, Diabetic Psychiatric: Reports: Anxiety, Bipolar, Depression, Mood Swings, PTSD, Schizophrenia Endocrine/Metabolic: Reports: Diabetes, type II Other Endocrine/Metabolic Family History: Father Hematologic: Reports: Anemia Oncologic: Reports: Other (See Below) Other Oncologic Family History: CA melanoma - Caffeine Use Caffeine Use: Reports: Tea ED ROS GENERAL - Review of Systems Review Of Systems: See Below Constitutional: Reports: No Symptoms HEENT: Reports: No Symptoms Respiratory: Reports: Cough Cardiovascular: Reports: Chest Pain Endocrine: Reports: No Symptoms GI/Abdominal: Reports: No Symptoms : Reports: No Symptoms Musculoskeletal: Reports: No Symptoms Skin: Reports: No Symptoms Neurological: Reports: No Symptoms Psychiatric: Reports: No Symptoms Hematologic/Lymphatic: Reports: No Symptoms Immunologic: Reports: No Symptoms ED EXAM, GENERAL - Physical Exam Exam: See Below Exam Limited By: No Limitations General Appearance: Alert, WD/WN, No Apparent Distress Eye Exam: Bilateral Eye: EOMI, PERRL Respiratory/Chest: No Respiratory Distress, Lungs Clear, Normal Breath Sounds Cardiovascular: Normal Peripheral Pulses, Regular Rate, Rhythm GI/Abdominal: Normal Bowel Sounds, Soft, Non-Tender Rectal (Female) Exam: Normal Exam Extremities: Normal Inspection, Normal Range of Motion Neurological: Alert, Oriented, CN II-XII Intact, Normal Cognition, Normal Gait Course - Vital Signs Last Recorded V/S: Last Vital Signs Temp 98.2 F 10/30/20 20:25 Pulse 88 10/30/20 20:25 Resp 20 10/30/20 20:25 BP 144/99 H 10/30/20 20:25 Pulse Ox 98 10/30/20 20:25 - Orders/Labs/Meds Labs: Laboratory Tests 10/30/20 10/30/20 10/30/20 Range/Units 19:36 19:36 19:46 WBC 5.35 (4.0-11.0) K/uL RBC 3.93 L (4.30-5.90) M/uL Hgb 12.4 (12.0-16.0) g/dL Hct 37.0 (36.0-46.0) % MCV 94.1 (80.0-98.0) fL MCH 31.6 (27.0-32.0) pg MCHC 33.5 (31.0-37.0) g/dL RDW Std Deviation 45.6 (28.0-62.0) fl RDW Coeff of Hernando 13 (11.0-15.0) % Plt Count 254 (150-400) K/uL MPV 9.70 (7.40-12.00) fL Neut % (Auto) 58.3 (48.0-80.0) % Lymph % (Auto) 25.2 (16.0-40.0) % [place] % (Auto) 6.4 (0.0-15.0) % Eos % (Auto) 9.2 H (0.0-7.0) % Baso % (Auto) 0.9 (0.0-1.5) % Neut # (Auto) 3.1 (1.4-5.7) K/uL Lymph # (Auto) 1.4 (0.6-2.4) K/uL Carolina # (Auto) 0.3 (0.0-0.8) K/uL Eos # (Auto) 0.5 (0.0-0.7) K/uL Baso # (Auto) 0.1 (0.0-0.1) K/uL Nucleated RBC % 0.0 /100WBC Nucleated RBCs # 0 K/uL Sodium 141 (136-145) mmol/L Potassium 4.0 (3.5-5.1) mmol/L Chloride 105 (98-107) mmol/L Carbon Dioxide 26.5 (21.0-32.0) mmol/L BUN 10 (7.0-18.0) mg/dL Creatinine 1.0 (0.6-1.0) mg/dL Est Cr Clr Drug Dosing 73.45 mL/min Estimated GFR (MDRD) > 60.0 ml/min Glucose 92 (74-106) mg/dL Calcium 8.0 L (8.5-10.1) mg/dL Phosphorus 3.6 (2.6-4.7) mg/dL Magnesium 1.9 (1.8-2.4) mg/dL Total Bilirubin 0.1 L (0.2-1.0) mg/dL AST 16 (15-37) IU/L ALT 20 (14-63) IU/L Alkaline Phosphatase 89 (46-116) U/L Troponin I < 0.050 (0.000-0.056) ng/mL Total Protein 6.2 L (6.4-8.2) g/dL Albumin 3.1 L (3.4-5.0) g/dL Globulin 3.1 (2.6-4.0) g/dL Albumin/Globulin Ratio 1.0 (0.9-1.6) Urine HCG, Qual NEGATIVE (NEGATIVE) Meds: Medications Discontinued Medications Generic Name Dose Route Start Last Admin Trade Name Freq PRN Reason Stop Dose Admin Diphenhydramine HCl 25 mg 10/30/20 19:25 10/30/20 19:37 Diphenhydramine 50 Mg/Ml Sdv IVPUSH 10/30/20 19:26 25 mg ONETIME ONE Administration Metoclopramide HCl 10 mg 10/30/20 19:25 10/30/20 19:39 Metoclopramide 10 Mg/2 Ml Sdv IVPUSH 10/30/20 19:26 10 mg ONETIME ONE Administration Departure - Departure Time of Disposition: 20:45 Disposition: Home, Self-Care 01 Condition: Good Clinical Impression: Head ache, Viral illness - Discharge Information *PRESCRIPTION DRUG MONITORING PROGRAM REVIEWED*: Not Applicable *COPY OF PRESCRIPTION DRUG MONITORING REPORT IN PATIENT LORY: Not Applicable Instructions: Upper Respiratory Infection, Adult, [id number] Referrals: Kristin Soares MD [Primary Care Provider] - Forms: ED Department Discharge Additional Instructions: The following information is given to patients seen in the emergency department who are being discharged to home. This information is to outline your options for follow-up care. We provide all patients seen in our emergency department with a follow-up referral. The need for follow-up, as well as the timing and circumstances, are variable depending upon the specifics of your emergency department visit. If you don't have a primary care physician on staff, we will provide you with a referral. We always advise you to contact your personal physician following an emergency department visit to inform them of the circumstance of the visit and for follow-up with them and/or the need for any referrals to a consulting specialist. The emergency department will also refer you to a specialist when appropriate. This referral assures that you have the opportunity for follow-up care with a specialist. All of these measure are taken in an effort to provide you with optimal care, which includes your follow-up. Under all circumstances we always encourage you to contact your private physician who remains a resource for coordinating your care. When calling for follow-up care, please make the office aware that this follow-up is from your recent emergency room visit. If for any reason you are refused follow-up, please contact the [facility] Emergency Department at and asked to speak to the emergency department charge nurse. Please follow up with your primary care physician. If you do not have a primary care physician, see below: [facility] [address] [place] [id number] My [facility] [address] [place] [address] You were seen today for headache. We gave you medication to improve your headache. We also did labs and EKGs that were within normal limits. Your x-ray showed a possible nodule on there we recommend he follow your primary care physician have a repeat x-ray in the next 1 to 2 months to make sure that is not getting enlarged. Is unclear what this at this time but for some that can be follow-up to primary care physician. If you have any other concerning signs or symptoms please return to the ED. Sepsis Event Note (ED) - Focused Exam Vital Signs: Vital Signs Temp Pulse Resp BP Pulse Ox 10/30/20 20:25 98.2 F 88 20 144/99 H 98 10/30/20 19:42 98.2 F 78 18 156/102 H 97 10/30/20 19:19 98.2 F 90 18 166/108 H 98 - Assessment/Plan Plan: Patient is a 40-year-old female who presents today for cough headache and fatigue. Patient had a recent cold exposure. Patient sat 90% on room air this is mostly for headache. Will provide Reglan Benadryl obtain labs EKG and reassess.
[2020-10-30] MEDS: diphenhydrAMINE 50 MG/ML SDV IVPUSH ONE (19:37)
[2020-10-30] MEDS: Metoclopramide 10 MG/2 ML SDV IVPUSH ONE (19:39)
--- NOTE | 2020-10-30 20:03 | CR ---
INDICATION: Cough COVID-19 exposure TECHNIQUE: Chest radiograph 1 view COMPARISON: None FINDINGS: Mediastinum: The mediastinum is normal in appearance. The heart silhouette is normal in size and morphology. Lung: There is a new 1.3 cm asymmetric density seen in the right apex overlying the anterior right 1st rib. No sign of pleural effusion seen. No pneumothorax is identified. Bone and Soft tissue: Unremarkable for age. IMPRESSION: 1. There is a new 1.3 cm asymmetric density seen in the right apex overlying the anterior right 1st rib. Follow-up chest radiograph in 1-2 months is recommended to exclude pulmonary nodule. This may be a density associated with the rib. Dictated by Franklyn Hammer MD @ 10/30/2020 8:02:43 PM Dictated by: Franklyn Hammer MD @ 10/30/2020 20:02:52 (Electronically Signed)
[2020-10-30 20:18] LABS: BLOOD UREA NITROGEN,BUN 10 mg/dL (7.0-18.0); CARBON DIOXIDE,CO2 26.5 mmol/L (21.0-32.0); CHLORIDE,CL 105 mmol/L (98-107); GLUCOSE RANDOM 92 mg/dL (74-106); SODIUM,NA 141 mmol/L (136-145)
[2020-10-30 22:42] VITALS: BP 127/77; PULSE 78
== END 2020-10-30 20:57 | disposition home or self-care (01) ==
LOC: MW.ED 18:08
DX: B34.9 Viral infection, unspecified (principal); Z88.5 Allergy status to narcotic agent; Z88.8 Allergy status to other drugs, medicaments and biological substances; Z79.899 Other long term (current) drug therapy
CPT/HCPCS: 36415; 71045; 80053; 81025; 83735; 84100; 84484; 85025; 93005; 96374; 96375; 99284; J1200; J2765

== ENCOUNTER 2023-06-10 08:11 | Day surgery (SDC) | payer BC ==
[~2023-06-10 08:11] MED LIST: Albuterol 0.083% 2.5 MG/3 ML Neb Soln NEB PRN; Magnesium Sulfate (4.06 MEQ/ML) 5 GM/10 ML SDV ONE; Metoclopramide 10 MG/2 ML SDV IVPUSH PRN; Morphine 2 MG/ML SYRINGE IVPUSH PRN; Naloxone 0.4 MG/ML SDV IVPUSH PRN; Ondansetron 4 MG/2 ML SDV IVPUSH PRN; Scopalamine 1mg/3day Transdermal Patch ONE; Scopalamine 1mg/3day Transdermal Patch TOP ONE; Sodium Chloride 0.9% 10 ML Syringe FLUSH PRN; Sodium Chloride 0.9% 2.5 ML Syringe FLUSH PRN; Sodium Chloride 0.9% 20 ML SDV IV PRN; droPERidol 5 MG/2 ML SDV IVPUSH PRN; fentaNYL 50 MCG/ML SDV IVPUSH PRN; propofoL 100 ML ONE
[2023-06-10] MEDS: Lactated Ringers 1,000 ML IV SCH (08:35)
[2023-06-10 08:49] LABS: HEMATOCRIT 34.8 % (37.0-47.0); MEAN CORPUSCULAR HEMOGLOBIN 27.6 pg (28.0-32.0); MEAN CORPUSCULAR HGB CONC 31.6 g/dL (32.0-36.0); MEAN CORPUSCULAR VOLUME 87.2 fL (83.0-99.0); MEAN PLATELET VOLUME 9.3 fL (9.4-12.3); PLATELET COUNT,PLT 268 K/uL (150-400); RED BLOOD CELL COUNT 3.99 M/uL (4.10-5.30); WHITE BLOOD CELL COUNT,WBC 2.16 K/uL (3.9-11.3)
[2023-06-10] MEDS ORDERED: fentaNYL 250 MCG/5 ML SDV ONE (09:11)
[2023-06-10] MEDS ORDERED: Famotidine 20 MG/2 ML SDV ONE (09:14)
[2023-06-10] MEDS ORDERED: Dexamethasone 4 MG/ML 5 ML MDV ONE (10:07)
[2023-06-10] MEDS ORDERED: Ondansetron 4 MG/2 ML SDV ONE (10:07)
[2023-06-10] MEDS ORDERED: Ketorolac 30 MG/ML SDV ONE (10:07)
[2023-06-10] MEDS: HYDROmorphone 1 MG/ML Syringe IVPUSH PRN (10:21)
[2023-06-10 10:46] VITALS: BP 109/73; PULSE 58
== END 2023-06-10 11:05 | disposition home or self-care (01) ==
LOC: MW.SDS 08:11
PROVIDERS: ATTEND Obstetrics & Gynecology
DX: N93.9 Abnormal uterine and vaginal bleeding, unspecified (principal); N92.0 Excessive and frequent menstruation with regular cycle; F32.A Depression, unspecified; Z98.84 Bariatric surgery status; Z79.899 Other long term (current) drug therapy
CPT/HCPCS: 36415; 58563; 84703; 85027; A9270; J0131; J1100; J1170; J1885; J2405; J2704; J3010; J3475; J3490; J7120; 00952